=== PATIENT | female | born 1990 | race Caucasian/White ===

== ENCOUNTER 2020-11-10 14:06 | Outpatient (REF) | payer OTHER, SELFPAY ==
[2020-11-11 18:52] LABS: C. trachomatis RNA TMA NOT DETECTED (NOT DETECTED); N. gonorrhoeae RNA TMA NOT DETECTED (NOT DETECTED)
== END 2020-11-10 14:07 | disposition home or self-care (01) ==
LOC: HO.LAB 14:06
PROVIDERS: Visit Provider Advanced Practice Midwife
DX: R10.2 Pelvic and perineal pain (principal)
CPT/HCPCS: 36415; 81003; 81025; 87491; 87591; 99212

== ENCOUNTER → 2020-12-22 14:21 | Outpatient (BNVA) | payer OTHER, SELFPAY | PROVIDERS: Visit Provider Obstetrics & Gynecology | DX: Z13.89 Encounter for screening for other disorder (principal) | CPT/HCPCS: 99395 ==

== ENCOUNTER 2020-12-30 13:44 | Outpatient (REF) | payer OTHER, SELFPAY ==
--- NOTE | ~2020-12-30 | US_ITS ---
EXAMINATION: ULTRASOUND PELVIS CLINICAL INFORMATION: Pelvic and perineal pain. COMPARISON: None TECHNIQUE: Transabdominal and transvaginal imaging of pelvis is performed. FINDINGS: On transabdominal ultrasound the uterus is retroverted and retroflexed measuring 10.1 cm in length, 3.3 cm in AP and 5.4 cm in transverse dimension. The uterus is homogeneous in echotexture. There is a question of septated or a duplicated cervix, likely incomplete segmentation. There is minimal fluid within the cervical canal. Right ovary measures 2.7 x 2.4 x 2.1 cm and volume 7.1 mL. It appears unremarkable. Previously right ovary measured 3.2 x 2.1 x 2.8 cm. Left ovary measures 2.8 x 2.9 x 2.8 cm and volume 11.9 mL. There is a small anechoic cyst measuring 1.3 x 1.8 x 2.3 cm with a daughter cyst. There is no free fluid in cul-de-sac. US/US transvaginal IMPRESSION: Unremarkable uterus. Question duplicated or septated cervix with trace fluid. Simple cyst with likely a daughter cyst adjacent in left ovary.
--- NOTE | ~2020-12-30 | US_ITS ---
EXAMINATION: ULTRASOUND PELVIS CLINICAL INFORMATION: Pelvic and perineal pain. COMPARISON: None TECHNIQUE: Transabdominal and transvaginal imaging of pelvis is performed. FINDINGS: On transabdominal ultrasound the uterus is retroverted and retroflexed measuring 10.1 cm in length, 3.3 cm in AP and 5.4 cm in transverse dimension. The uterus is homogeneous in echotexture. There is a question of septated or a duplicated cervix, likely incomplete segmentation. There is minimal fluid within the cervical canal. Right ovary measures 2.7 x 2.4 x 2.1 cm and volume 7.1 mL. It appears unremarkable. Previously right ovary measured 3.2 x 2.1 x 2.8 cm. Left ovary measures 2.8 x 2.9 x 2.8 cm and volume 11.9 mL. There is a small anechoic cyst measuring 1.3 x 1.8 x 2.3 cm with a daughter cyst. There is no free fluid in cul-de-sac. US/US pelvic complete IMPRESSION: Unremarkable uterus. Question duplicated or septated cervix with trace fluid. Simple cyst with likely a daughter cyst adjacent in left ovary.
== END 2020-12-30 13:45 | disposition home or self-care (01) ==
LOC: HO.US 13:44
PROVIDERS: Visit Provider Obstetrics & Gynecology
DX: R10.2 Pelvic and perineal pain (principal)
CPT/HCPCS: 76830; 76856

== ENCOUNTER → 2021-01-04 12:07 | Outpatient (BNVA) | payer OTHER, SELFPAY | PROVIDERS: Visit Provider Obstetrics & Gynecology ==

== ENCOUNTER 2021-11-02 09:34 | Outpatient (REF) | payer OTHER, SELFPAY ==
[2021-11-02 09:52] LABS: MANUAL DIFF FLAG NO
[2021-11-02 10:14] LABS: Basophils Percent Auto 0.1 % (0-2); Eosinophils Percent Auto 0.4 % (0-4); Hematocrit 41.3 % (37.0-47.0); Hemoglobin 14.1 g/dl (12.0-16.0); Imm Gran Abs Auto 0.02 X10*3/uL (0.00-0.03); Imm Gran Pct Auto 0.2 % (0.0-0.4); Lymphocytes Absolute Auto 2.2 X10*3/uL (1.2-4.9); Lymphocytes Percent Auto 25.8 % (20-40); Mean Corpuscular HGB Conc 34.1 g/dl (31.0-35.0); Mean Corpuscular Hemoglobin 31.3 pg (27.0-33.0); Mean Corpuscular Volume 91.6 fL (80.0-98.0); Mean Platelet Volume 10.1 fL (9.4-12.3); Monocytes Absolute Auto 0.9 X10*3/uL (0.1-1.2); Monocytes Percent Auto 10.6 % (2-11); Neutrophils Absolute Auto 5.4 x10*3/uL (2.0-8.3); Neutrophils Percent Auto 62.9 % (45-73); Platelet Count 254 X10*3/uL (160-400); Red Blood Count 4.51 X10*6/uL (4.20-5.50); Red Cell Distribution Width 11.5 % (11.0-16.0); White Blood Count 8.5 X10*3/uL (4.8-10.8)
[2021-11-02 10:44] LABS: Alanine Aminotransferase 19 U/L (0-31); Albumin Level 4.2 g/dL (3.5-5.0); Alkaline Phosphatase 67 U/L (39-117); Anion Gap 12 (12-20); Aspartate Amino Transferase 17 U/L (5-31); Bilirubin Total 0.8 mg/dL (0.0-1.0); Blood Urea Nitrogen 8 mg/dL (9-16); C Reactive Protein 0.28 mg/dL (< or = 0.50); Calcium 9.5 mg/dL (8.4-10.2); Carbon Dioxide 24 mmol/L (22-29); Chloride 107 mmol/L (96-108); Cholesterol 126 mg/dL; Estimated Glomerular Filt Rate > 60; Glucose Fasting 92 mg/dL (60-99); HDL Cholesterol 42 mg/dL; LDL Cholesterol Calculated 74 mg/dl; Potassium 3.9 mmol/L (3.3-5.1); Sodium 139 mmol/L (135-145); Total Protein 7.3 g/dL (6.5-8.0); Triglycerides 50 mg/dL
[2021-11-02 10:48] LABS: Rheumatoid Factor < 15.0 IU/mL (<15.0)
[2021-11-02 10:48] LABS: Appearance Urine CLEAR; Color Urine YELLOW; Glucose Urine UA NEG (NEG); Leukocyte Esterase Urine NEG (NEG); Nitrite Urine NEG (NEG); Specific Gravity - Urine 1.015 (1.005-1.025); Urine Blood NEG (NEG); Urine Ketones NEG (NEG); Urine Protein NEG (NEG-TRACE)
[2021-11-02 11:02] LABS: TSH reflex Free T4 2.07 uIU/mL (0.32-4.0); Vitamin D 25-OH Total 21.8 ng/mL (>30)
[2021-11-02 11:04] LABS: Erythrocyte Sedimentation Rate 5 MM/HR (0-20)
[2021-11-02 11:13] LABS: Folate 15.4 ng/mL (> or = 4.0); Vitamin B12 178 pg/mL (200-900)
[2021-11-03 13:16] LABS: Anti Nuclear Antibody Screen NEGATIVE (NEGATIVE)
== END 2021-11-02 09:35 | disposition home or self-care (01) ==
LOC: HO.LAB 09:34
PROVIDERS: Visit Provider Internal Medicine
DX: Z00.00 Encounter for general adult medical examination without abnormal findings (principal); E55.9 Vitamin D deficiency, unspecified; E53.8 Deficiency of other specified B group vitamins; M79.10 Myalgia, unspecified site; R53.83 Other fatigue
CPT/HCPCS: 36415; 80053; 80061; 81003; 82306; 82607; 82746; 84443; 85025; 85652; 86038; 86039; 86140; 86431

== ENCOUNTER 2021-12-27 13:43 | Outpatient (REF) | payer OTHER, SELFPAY | END 2021-12-27 13:44 | disposition home or self-care (01) | LOC: HO.LAB 13:43 | PROVIDERS: PCP Internal Medicine; Visit Provider Obstetrics & Gynecology | DX: Z01.419 Encounter for gynecological examination (general) (routine) without abnormal findings (principal) | CPT/HCPCS: 88142 ==

== ENCOUNTER 2022-01-06 09:50 | Outpatient (REF) | payer OTHER, SELFPAY ==
[2022-01-07 13:08] LABS: BV Int Neg Control Negative (Negative); BV Int Pos Control Positive (Positive)
[2022-01-07 14:31] LABS: CT PCR NOT DETECTED (Not Detect.); NG PCR NOT DETECTED (Not Detect.)
== END 2022-01-06 09:51 | disposition home or self-care (01) ==
LOC: HO.LAB 09:50
PROVIDERS: PCP Internal Medicine; Visit Provider Advanced Practice Midwife
DX: Z01.411 Encounter for gynecological examination (general) (routine) with abnormal findings (principal); L20.9 Atopic dermatitis, unspecified; B37.3 Candidiasis of vulva and vagina; Z20.2 Contact with and (suspected) exposure to infections with a predominantly sexual mode of transmission
CPT/HCPCS: 87480; 87491; 87510; 87591; 87660; 99212

== ENCOUNTER 2022-03-27 15:43 | Emergency (ER) | payer OTHER, SELFPAY ==
[2022-03-27 16:20] VITALS: BP 121/76; PULSE 89; RESP 16; TEMP 36.1; O2SAT 100; BMI 24.5
[2022-03-27 16:49] LABS: IDNOW Serial# 16C4AD1C; Influenza A Negative (Negative); Influenza B2 Negative (Negative)
[2022-03-27 16:50] LABS: COVID-19 Test Positive (Negative)
--- NOTE | 2022-03-27 16:56 | ED.URI ---
HPI - URI/Sore Throat General Chief Complaint: Upper Respiratory Symptoms Stated Complaint: diarrhea/fatigue/weakness Time Seen by Provider: 03/27/22 16:56 Source: patient Mode of arrival: ambulatory Limitations: no limitations History of Present Illness HPI Narrative: 31 y/o female with history of mild intermittent asthma who presents to the ER with dry cough worsening since last night after a known exposure to her mother who is up visiting from [place] and was found to have COVID-19. Patient is fully vaccinated and boosted. She denies SOB or chest pain but states the cough can lead her to having a hard time catching her breath. No ARCE or difficulty breathing. No wheezing, she has not had to use her inhaler. No fever or chills. She is eating and drinking normally today but developed loose stools this day and has had diarrhea 7x, nonbloody without abdominal pain. MD elicited complaint: cough and other (diarrhea) Pertinent past history: asthma Onset (ago): day(s) (1) Consistency: progressively worsening Severity: moderate Able to tolerate fluids by mouth: Yes Exacerbating factors: nothing Relieving factors: nothing Context: sick contacts Associated symptoms: nasal congestion, cough and diarrhea Treatments prior to arrival: cold medicine Related Data Home Medications Medication Instructions Recorded Confirmed ibuprofen 400 mg tablet See Rx Instructions PO Q6-8H PRN 11/01/21 01/06/22 Previous Rx's Medication Instructions Recorded fluconazole 150 mg tablet 150 mg PO Q3D 0 Days #2 tab 01/06/22 albuterol sulfate 90 mcg/actuation 2 puff INHALATION Q4-6H PRN #8.5 g 01/24/22 aerosol inhaler (ProAir HFA) benzonatate 100 mg capsule 100 mg PO TID PRN #30 cap 03/27/22 loperamide 2 mg tablet (Imodium 2 mg PO Q6H PRN #20 tab 03/27/22 A-D) Allergies Allergy/AdvReac Type Severity Reaction Status Date / Time No Known Allergies Allergy Verified 01/06/22 10:24 Review of Systems Review of Systems: Constitutional: No Fever, No Chills, +Fatigue ENT/Mouth: No sore throat, No Rhinorrhea, No Swallowing Difficulty Cardiovascular: No Chest Pain, No SOB, No Orthopnea, No Edema Respiratory: + Cough, No Sputum, No Wheezing, No dyspnea Gastrointestinal: No Nausea, No Vomiting, + Diarrhea, No abdominal Pain, No Hematochezia, No Melena Genitourinary: No Dysuria, No Urinary Frequency, No Hematuria Musculoskeletal: No joint pain, No Myalgias Skin: No Skin Lesions, No rash Neuro: No Weakness, No Numbness, No Dizziness, +Headache Heme/Lymph: No Bruising, No Lymphadenopathy PMFSH Past Medical History Medical History Asthma Atopic dermatitis Gastritis Surgical History History of removal of cyst History of tubal ligation Family History Family History Father Asthma Mother Asthma Son Developmental delay, severe ADD (attention deficit disorder) Maternal Grandmother Diabetes Maternal Grandfather No problems noted. Other Mental health problem Social History Social History Housing: Apartment Alcohol intake: never Patient Tobacco Use Status: Current everyday Tobacco user Cigarettes Per Day: 4 Second Hand Smoke Exposure: Yes Advance Directives: No Advance Directives Information Provided: No service: No Current occupational status: employed Sexual orientation: Straight/Heterosexual Gender identity: Female Physical Exam Vital Signs: Vital Signs: Last Vital Signs Temp 96.9 F 03/27/22 16:20 Pulse 89 03/27/22 16:20 Resp 16 03/27/22 16:20 BP 121/76 03/27/22 16:20 Pulse Ox 100 03/27/22 16:20 BMI result Body Mass Index 24.5 Appearance: Alert. Oriented X3. No acute distress. Eyes: Pupils equal, round and reactive to light. ENT: Pharynx normal. Neck: Normal inspection. Neck supple. CVS: Normal heart rate and rhythm. Pulses normal. Respiratory: No respiratory distress. Breath sounds normal. Abdomen: Soft and nontender. +BS x4 Skin: Skin warm and dry. Normal skin color. Normal skin turgor. No rashes. Extremities: Normal inspection x4 Neuro: Oriented X 3. Grossly normal, nonfocal Course Course Course Narrative: 31 y/o female with history of mild intermittent asthma presents to the ER with cough and diarrhea x1 day. VS normal on arrival and exam is benign. Lungs are clear and SpO2 100%. She is found to be COVID positive. Will send Rx for tessalon and imodium. Stable for d/c home with supportive care. MDM - URI/Sore Throat Lab Data Labs: Lab Results 03/27/22 03/27/22 Range/Units 16:27 16:27 COVID-19 (RONNIE) Positive A (Negative) COVID-19 Clin Com See Note Influenza Type A (DANNA) Negative (Negative) Influenza Type B (DANNA) Negative (Negative) Influenza A & B Note See Note Critical Care Time Critical Care Time Critical Care Time: No Discharge Plan Discharge Clinical Impression: COVID-19 Patient Disposition: Home, Self-Care Instructions: Covid-19 Viral Syndrome and Novel Coronavirus (ED) Hey/Ath Additional Instructions: You were found to be COVID-19 POSITIVE today. Your exam and oxygen levels were normal. Rest. Drink plenty of fluids. Do not go out in public for the next 7 days. If you have a negative COVID test on day 5 you can return to work on day 7. If it is still positive, you must remain out for 10 days. Take over the counter cold/flu medications as needed for your symptoms. Take Tylenol and/or Motrin as needed for fevers and body aches. Follow up with your doctor this week. If you shortness of breath worsens, if you develop difficulty breathing or any other concerning symptom come back to the ER for further evaluation. Prescriptions: New benzonatate 100 mg capsule 100 mg PO TID PRN (Reason: cough) Qty: 30 0RF loperamide [Imodium A-D] 2 mg tablet 2 mg PO Q6H PRN (Reason: loose stool) Qty: 20 0RF No Action albuterol sulfate [ProAir HFA] 90 mcg/actuation HFA aerosol inhaler 2 puff inhalation Q4-6H PRN (Reason: shortness of breath or wheezing) Qty: 8.5 0RF ibuprofen 400 mg tablet See Rx Instructions PO Q6-8H PRN (Reason: pain) 0RF Rx Instructions: Take 1 to 2 tablets PO every 6 to 8 hours with food PRN; fluconazole 150 mg tablet 150 mg PO Q3D 0 Days Qty: 2 2RF Rx Instructions: may repeat second dose 72 hrs after first dose if symptoms persist Stand Alone Forms: Work/School Release Interventions: ED Discharge Assessment Last Done: 03/27/22 17:20 Discharge Date/Time: 03/27/22 17:22
== END 2022-03-27 17:22 | disposition home or self-care (01) ==
PROVIDERS: Emergency Provider Emergency Medicine Emergency Medical Services; PCP Internal Medicine
DX: U07.1 COVID-19 (principal); R09.81 Nasal congestion; R05.9 Cough, unspecified; F17.210 Nicotine dependence, cigarettes, uncomplicated; Z71.6 Tobacco abuse counseling
CPT/HCPCS: 87502; 87635; 99282; 99283

== ENCOUNTER 2022-05-29 09:23 | Outpatient (REF) | payer OTHER, SELFPAY ==
[2022-05-29 11:02] LABS: Magnesium 1.7 mg/dL (1.6-2.6)
[2022-05-29 11:33] LABS: Folate 10.9 ng/mL (> or = 4.0); Vitamin B12 190 pg/mL (200-900)
== END 2022-05-29 09:24 | disposition home or self-care (01) ==
LOC: HO.LAB 09:23
PROVIDERS: PCP Internal Medicine; Visit Provider Nurse Practitioner Family
DX: I78.1 Nevus, non-neoplastic (principal); R79.89 Other specified abnormal findings of blood chemistry; E53.8 Deficiency of other specified B group vitamins
CPT/HCPCS: 36415; 82306; 82607; 82746; 83735

== ENCOUNTER 2022-06-22 12:43 | Outpatient (REF) | payer OTHER, SELFPAY ==
[2022-06-29 08:32] LABS: HPV mRNA E6/E7 rflx Not Detected (Not Detected)
== END 2022-06-22 12:44 | disposition home or self-care (01) ==
LOC: HO.LAB 12:43
PROVIDERS: Visit Provider Obstetrics & Gynecology
DX: Z12.4 Encounter for screening for malignant neoplasm of cervix (principal); Z11.51 Encounter for screening for human papillomavirus (HPV); R87.615 Unsatisfactory cytologic smear of cervix
CPT/HCPCS: 87624; 88142; 99212

== ENCOUNTER → 2022-08-31 09:33 | Outpatient (BNVA) | payer OTHER, SELFPAY | PROVIDERS: PCP Internal Medicine; Visit Provider Surgery Vascular Surgery | DX: I83.11 Varicose veins of right lower extremity with inflammation (principal) | CPT/HCPCS: 99202 ==

== ENCOUNTER 2022-10-17 13:05 | Outpatient (REF) | payer OTHER, SELFPAY ==
--- NOTE | ~2022-10-17 | US_ITS ---
EXAMINATION: US LOWER EXTREMITY VENOUS (REFLUX EXAM), BILATERAL CLINICAL INDICATION: Chronic venous insufficiency with lower extremity varicose veins COMPARISON: None. TECHNIQUE: Color flow triplex imaging and compression Doppler was performed to evaluate both the deep and the superficial systems bilaterally. To evaluate the superficial system, the examination was performed in the upright position. Color-flow Doppler ultrasound and compression ultrasound were utilized. In addition, maneuvers were utilized to demonstrate reflux. FINDINGS: 1. DEEP VENOUS ULTRASOUND OF THE RIGHT LOWER EXTREMITY: Common Femoral Vein: Compressible, normal respiratory variation and augmented flow. Femoral Vein: Compressible, normal color flow and augmentation. Popliteal Vein: Compressible, normal augmentation. Deep Reflux: There is no evidence of reflux in the deep system in either the common femoral vein or the popliteal vein. There is no evidence of a Mccormick's cyst. 2. SUPERFICIAL ULTRASOUND WITH DOPPLER OF RIGHT LOWER EXTREMITY: GREAT SAPHENOUS VEIN: Saphenofemoral Junction: 0.6 cm; Reflux: 0 ms Proximal Thigh: 0.4 cm; Reflux: 0 ms Mid Thigh: 0.3 cm; Reflux: 0 ms Above Knee: 0.2 cm; Reflux: 0 ms At Knee: 0.2 cm; Reflux: 0 ms Below Knee: 0.2 cm; Reflux: 0 ms Mid Calf: 0.3 cm; Reflux: 0 ms Ankle: 0.3 cm; Reflux: 0 ms DUPLICATED MEDIAL GREAT SAPHENOUS VEIN: Diameter: None Imaged Reflux: NA DUPLICATED LATERAL GREAT SAPHENOUS VEIN: Diameter: None Imaged Reflux: NA SMALL SAPHENOUS VEIN: Proximal: 0.4 cm; Reflux: 0 ms Distal: 0.2 cm; Reflux: 0 ms VEIN OF GIACOMINI: None Imaged. PERFORATORS: Location: None significant Size: NA Reflux: NA VARICOSITIES: Location: Proximal thigh Size: 0.4 cm Reflux: None 3. DEEP VENOUS ULTRASOUND OF THE LEFT LOWER EXTREMITY: Common Femoral Vein: Compressible, normal respiratory variation and augmented flow. Femoral Vein: Compressible, normal color flow and augmentation. Popliteal Vein: Compressible, normal augmentation. Deep Reflux: There is no evidence of reflux in the deep system in either the common femoral vein or the popliteal vein. There is no evidence of a Mccormick's cyst. 4. SUPERFICIAL ULTRASOUND WITH DOPPLER OF LEFT LOWER EXTREMITY: GREAT SAPHENOUS VEIN: Saphenofemoral Junction: 0.7 cm; Reflux: 0 ms Proximal Thigh: 0.3 cm; Reflux: 0 ms Mid Thigh: 0.3 cm; Reflux: 0 ms Above Knee: 0.2 cm; Reflux: 0 ms At Knee: 0.2 cm; Reflux: 0 ms Below Knee: 0.2 cm; Reflux: 0 ms Mid Calf: 0.3 cm; Reflux: 0 ms Ankle: 0.2 cm; Reflux: 0 ms DUPLICATED MEDIAL GREAT SAPHENOUS VEIN: Diameter: None Imaged Reflux: NA DUPLICATED LATERAL GREAT SAPHENOUS VEIN: Diameter: 0.2 cm Reflux: None SMALL SAPHENOUS VEIN: Proximal: 0.3 cm; Reflux: 0 ms Distal: 0.2 cm; Reflux: 0 ms VEIN OF GIACOMINI: None Imaged. PERFORATORS: Location: None significant Size: NA Reflux: NA VARICOSITIES: Location: None Imaged Size: NA Reflux: NA US/US venous duplex LE BI IMPRESSION: Right: No significant venous insufficiency or reflux in the great saphenous vein or small saphenous vein. Varicose vein in the proximal thigh as described above Left: No significant venous insufficiency or reflux in the great saphenous vein or small saphenous vein
== END 2022-10-17 13:06 | disposition home or self-care (01) ==
LOC: HO.US 13:05
PROVIDERS: Visit Provider Surgery Vascular Surgery
DX: I83.11 Varicose veins of right lower extremity with inflammation (principal)
CPT/HCPCS: 93970

== ENCOUNTER → 2022-10-26 09:45 | Outpatient (BNVA) | payer OTHER, SELFPAY | PROVIDERS: PCP Internal Medicine; Visit Provider Surgery Vascular Surgery | DX: M79.604 Pain in right leg (principal); M79.605 Pain in left leg | CPT/HCPCS: 99212 ==

== ENCOUNTER → 2023-03-08 09:13 | Outpatient (BNVA) | payer OTHER, SELFPAY | PROVIDERS: PCP Internal Medicine; Visit Provider Obstetrics & Gynecology ==

== ENCOUNTER 2023-05-28 08:30 | Emergency (ER) | payer OTHER, SELFPAY ==
[2023-05-28 08:34] VITALS: BP 104/79; PULSE 74; RESP 17; TEMP 35.9; O2SAT 99; BMI 28.5
[2023-05-28 08:50] LABS: Basophils Percent Auto 0.2 % (0-2); Eosinophils Absolute Auto 0.1 X10*3/uL (0.0-0.4); Eosinophils Percent Auto 0.6 % (0-4); Hematocrit 40.3 % (37.0-47.0); Hemoglobin 13.7 g/dl (12.0-16.0); Imm Gran Abs Auto 0.05 X10*3/uL (0.00-0.03); Imm Gran Pct Auto 0.5 % (0.0-0.4); Lymphocytes Absolute Auto 1.4 X10*3/uL (1.2-4.9); Lymphocytes Percent Auto 13.6 % (20-40); MANUAL DIFF FLAG NO; Mean Corpuscular Hemoglobin 30.6 pg (27.0-33.0); Mean Platelet Volume 9.5 fL (9.4-12.3); Monocytes Absolute Auto 0.7 X10*3/uL (0.1-1.2); Monocytes Percent Auto 7.1 % (2-11); Neutrophils Absolute Auto 8.1 x10*3/uL (2.0-8.3); Platelet Count 261 X10*3/uL (160-400); Red Blood Count 4.48 X10*6/uL (4.20-5.50); Red Cell Distribution Width 11.2 % (11.0-16.0); White Blood Count 10.4 X10*3/uL (4.8-10.8)
[2023-05-28 09:04] LABS: Alanine Aminotransferase 13 U/L (0-31); Albumin Level 3.6 g/dL (3.5-5.0); Alkaline Phosphatase 68 U/L (39-117); Anion Gap 14 (12-20); Aspartate Amino Transferase 15 U/L (5-31); Bilirubin Direct 0.2 mg/dL (0.0-0.5); Bilirubin Total 0.5 mg/dL (0.0-1.0); Blood Urea Nitrogen 9 mg/dL (9-16); Calcium 8.9 mg/dL (8.4-10.2); Carbon Dioxide 18 mmol/L (22-29); Chloride 109 mmol/L (96-108); Creatinine Clr Calc Pharmacy 143.2; Estimated Glomerular Filt Rate > 60; Glucose Random 100 mg/dL (60-115); Lipase 9 U/L (8-78); Potassium 3.5 mmol/L (3.3-5.1); Sodium 137 mmol/L (135-145); Total Protein 6.7 g/dL (6.5-8.0)
--- NOTE | 2023-05-28 09:11 | ED_ITS ---
HPI - Abdominal Pain General Chief Complaint: General Medical Stated Complaint: vomiting headache Time Seen by Provider: 05/28/23 08:54 Source: patient and old records reviewed Mode of arrival: ambulatory Limitations: no limitations History of Present Illness HPI narrative: 32 y/o female with history of asthma and history tubal ligation in the past who presents to the ER from home c/o intermittent epigastric abdominal pain along with N/V that started late last night. She state she vomited 6 times overnight and had 1 episode of nonbloody loose stool this morning. Her and boss recently had similar illness. She states the pain is mostly in the upper abdomen, in the epigastric and LUQ areas. No associated fever, chills, urinary symptoms. No chest pain, SOB. She is currently on her menstrual cycle. MD elicited complaint: abdominal pain Pertinent past history: gastritis (hx EGD in the past) Onset (ago): day(s) (1) Pain Consistency: intermittent Location: epigastric Severity: moderate Radiation: LUQ Exacerbating factors: nothing Relieving factors: nothing Context: history of similar episodes (years ago when she had gastritis ) Associated symptoms: nausea, vomiting and diarrhea (x1) Related Data Hx Last Menstrual Period: current Patient : No Home Medications Medication Instructions Recorded Confirmed ibuprofen 400 mg tablet See Rx Instructions PO Q6-8H PRN 11/01/21 05/17/22 pain Previous Rx's Medication Instructions Recorded albuterol sulfate 90 mcg/actuation 2 puff inhalation Q4-6H PRN 01/24/22 aerosol inhaler (ProAir HFA) shortness of breath or wheezing #8.5 grams fluticasone propionate 50 2 spray intranasal DAILY PRN 11/06/22 mcg/actuation nasal allergy symptoms 30 days #16 grams spray,suspension ondansetron 4 mg disintegrating 4 mg PO Q8H PRN nausea and 05/28/23 tablet vomiting #7 tabs pantoprazole 40 mg tablet,delayed 40 mg PO DAILY #14 tabs 05/28/23 release (Protonix) Allergies Allergy/AdvReac Type Severity Reaction Status Date / Time No Known Allergies Allergy Verified 03/08/23 09:22 Review of Systems Review of Systems Yes all other systems are reviewed and are negative PMFSH Past Medical History Medical History Asthma Atopic dermatitis COVID-19 Gastritis Surgical History History of removal of cyst History of tubal ligation Hx Last Menstrual Period: current Family History Family History Father Asthma Mother Asthma Son Developmental delay, severe ADD (attention deficit disorder) Maternal Grandmother Diabetes Maternal Grandfather No problems noted. Other Mental health problem Social History Social History Household Members: Spouse and Children Housing: Apartment Alcohol intake: never Patient Tobacco Use Status: Current everyday Tobacco user Tobacco use type: Cigarette Cigarettes Per Day: 4 Smoked in Last 30 Days: Yes Second Hand Smoke Exposure: Yes Use of substances other than those prescribed or required for medical reasons: No Advance Directives: No Advance Directives Information Provided: No Patient : No service: No Current occupational status: employed Current occupation: [employer] Sexual orientation: Straight/Heterosexual Gender identity: Female Cognitive needs: No Hearing needs: No Vision needs: Yes Physical Exam ED Vital Signs: Vital Signs - 24 hr 05/28/23 08:34 Temperature 96.6 F L Pulse Rate 74 Respiratory Rate 17 Blood Pressure 104/79 Pulse Oximetry 99 Oxygen Delivery Method Room Air BMI result Body Mass Index 28.5 Appearance: Alert. Oriented X3. No acute distress. Head: normocephalic, atraumatic. Eyes: Pupils equal, round and reactive to light. ENT: Pharynx normal. No tonsillar swelling or exudate. Neck: Normal inspection. Neck supple. CVS: Normal heart rate and rhythm. Pulses normal. Respiratory: No respiratory distress. Breath sounds normal. Abdomen: Soft and minimally tender in the epigastric area without rebound or guarding, normal active +BS x4 Skin: Skin warm and dry. Normal skin color. Normal skin turgor. No rashes. Extremities: No lower extremity edema. No joint swelling. Neuro/psych: Oriented X 3. No motor deficit. No sensory deficit. CN II-XII intact. Normal speech and cognition. Medical Decision Making Medical Decision Making MDM Narrative: 32 y/o female with history of asthma and history tubal ligation in the past who presents to the ER from home c/o intermittent epigastric abdominal pain along with N/V that started late last night. On arrival to the ER her VS are stable. Her exam is reassuring, no significant abd tenderness. Lab workup performed showing no leukocytosis. LFTs and lipase are normal. Given her known sick contacts, her clinical presentation is most likely c/w viral gastroenteritis. given GI cocktail with improvement in her symptoms. she is tolerating PO and feeling much better. stable for d/c home with prn zofran and PPI. she w/ f/u GI if symptoms persist. Differential Diagnosis Differential Diagnoses: The differential diagnosis associated with the presentation includes viral gastroenteritis, cholecystitis, SBO, pancreatitis, PUD, gastritis Lab Data MDM Lab Attestation statement: I reviewed the patient's lab results. no leukocytosis, LFTs normal 05/28/23 08:45 05/28/23 08:45 Labs: Lab Results 05/28/23 05/28/23 Range/Units 08:45 08:45 WBC 10.4 (4.8-10.8) X10*3/uL RBC 4.48 (4.20-5.50) X10*6/uL Hgb 13.7 (12.0-16.0) g/dl Hct 40.3 (37.0-47.0) % MCV 90.0 (80.0-98.0) fL MCH 30.6 (27.0-33.0) pg MCHC 34.0 (31.0-35.0) g/dl RDW 11.2 (11.0-16.0) % Plt Count 261 (160-400) X10*3/uL MPV 9.5 (9.4-12.3) fL Immature Gran % (Auto) 0.5 H (0.0-0.4) % Neut % (Auto) 78.0 H (45-73) % Lymph % (Auto) 13.6 L (20-40) % Lares % (Auto) 7.1 (2-11) % Eos % (Auto) 0.6 (0-4) % Baso % (Auto) 0.2 (0-2) % Lymph # (Auto) 1.4 (1.2-4.9) X10*3/uL Lares # (Auto) 0.7 (0.1-1.2) X10*3/uL Eos # (Auto) 0.1 (0.0-0.4) X10*3/uL Baso # (Auto) 0.0 (0.0-0.2) X10*3/uL Abs Immat Gran (auto) 0.05 H (0.00-0.03) X10*3/uL Absolute Neuts (auto) 8.1 (2.0-8.3) x10*3/uL Absolute Nucleated RBC 0.000 (0.0-0.012) X10*3/uL Nucleated RBC % (auto) 0.0 (0.0-0.2) /100WBC Sodium 137 (135-145) mmol/L Potassium 3.5 (3.3-5.1) mmol/L Chloride 109 H (96-108) mmol/L Carbon Dioxide 18 L (22-29) mmol/L Anion Gap 14 (12-20) BUN 9 (9-16) mg/dL Creatinine 0.57 (0.5-1.4) mg/dL Estim Creat Clear Calc 143.2 Estimated GFR > 60 Random Glucose 100 (60-115) mg/dL Calcium 8.9 D (8.4-10.2) mg/dL Total Bilirubin 0.5 (0.0-1.0) mg/dL Direct Bilirubin 0.2 (0.0-0.5) mg/dL AST 15 (5-31) U/L ALT 13 (0-31) U/L Alkaline Phosphatase 68 (39-117) U/L Total Protein 6.7 (6.5-8.0) g/dL Albumin 3.6 (3.5-5.0) g/dL Lipase 9 (8-78) U/L External Record Review External record reviewed: Outpatient record, Prior outpatient labs and Prior outpatient radiology Tests considered The following testing was considered but not selected: considered imaging of the abdomen including a possible CT scan or U/S however her exam was benign Prescription Management I considered prescription management with: Pain Medication Medications Administered Discontinued Medications Generic Name Dose Route Start Last Admin Trade Name Freq PRN Reason Stop Dose Admin Al Hydroxide/Mg Hydroxide 30 ml 05/28/23 09:08 05/28/23 09:21 Magnesium Hydrox/Alum Hydrox 30 Ml Oral.Susp PO 05/28/23 09:09 30 ml ONCE ONE Administration Belladonna Alkaloids/Phenobarbital 10 ml 05/28/23 09:08 05/28/23 09:20 Phenobarb/Hyoscy/Atropine/Scop 10 Ml Elixir PO 05/28/23 09:09 10 ml ONCE ONE Administration Famotidine 20 mg 05/28/23 09:08 05/28/23 09:20 Famotidine 20 Mg Tablet PO 05/28/23 09:09 20 mg ONCE ONE Administration Ondansetron HCl 4 mg 05/28/23 09:08 05/28/23 09:21 Ondansetron Odt 4 Mg Tab.Nicolledis TRANSLINGU 05/28/23 09:09 4 mg ONCE ONE Administration Critical Care Time Critical Care Time Critical Care Time: No Discharge Plan Discharge Clinical Impression: Gastroenteritis Patient Disposition: Home, Self-Care Instructions: Gastroenteritis (DC) Additional Instructions: You lab workup today was unremarkable. Your urine test was negative for infection and . You most likely have a viral GI bug also known as gastroenteritis. Treatment is supportive care, symptoms usually resolve on their own in 48-72 hours. Recommend rest and plenty of oral hydration. Stick to a bland diet like soup and toast while you are not feeling well. Take the prescribed medication as needed for nausea. Recommend over the counter Pepto Bismol or Imodium for upset stomach and diarrhea. Follow up with your doctor as needed. If you develop new or worsening symptoms call 911 or come back to the ER for further evaluation. Prescriptions: New ondansetron 4 mg tablet,disintegrating 4 mg PO Q8H PRN (Reason: nausea and vomiting) Qty: 7 0RF pantoprazole [Protonix] 40 mg tablet,delayed release (DR/EC) 40 mg PO DAILY Qty: 14 0RF No Action albuterol sulfate [ProAir HFA] 90 mcg/actuation HFA aerosol inhaler 2 puff inhalation Q4-6H PRN (Reason: shortness of breath or wheezing) Qty: 8.5 0RF fluticasone propionate 50 mcg/actuation spray,suspension 2 spray intranasal DAILY PRN (Reason: allergy symptoms) 30 Days Qty: 16 5RF Rx Instructions: administer into each nostril ibuprofen 400 mg tablet See Rx Instructions PO Q6-8H PRN (Reason: pain) Rx Instructions: Take 1 to 2 tablets PO every 6 to 8 hours with food PRN; Referrals: Spenser Mathew MD [Primary Care Provider] -
[2023-05-28] MEDS: PHENobarb/Hyoscy/Atropine/Scop 10 ML ELIXIR PO (09:20)
[2023-05-28] MEDS: Famotidine 20 MG TABLET PO (09:20)
[2023-05-28] MEDS: Ondansetron ODT 4 MG TAB.RAPDIS TRANSLINGU (09:21)
[2023-05-28] MEDS: Magnesium Hydrox/Alum Hydrox 30 ML ORAL.SUSP PO (09:21)
[2023-05-28 10:59] LABS: Appearance Urine Clear; Color Urine Yellow; Glucose Urine UA Negative (Negative); Leukocyte Esterase Urine Negative (Negative); Nitrite Urine Negative (Negative); PH >= 9.0 (5.0-9.0); UMIC TRIGGER UACC YES; Urine Blood Small (1+) (Negative); Urine Ketones Negative (Negative); Urine Protein Negative (Neg-Trace)
[2023-05-28 11:00] LABS: UPreg QC Valid YES; Urine Pregnancy NEGATIVE (NEGATIVE)
[2023-05-28 11:01] LABS: Bacteria Urine None Seen (None Seen); Hyaline Casts Urine 0-2 /LPF (0-2); RBC Urine >20 /HPF (0-2); Squamous Epithelial Cell Urine 0-2 /HPF (0-2); WBC Urine 0-5 /HPF (0-5)
== END 2023-05-28 11:04 | disposition home or self-care (01) ==
PROVIDERS: Emergency Provider Emergency Medicine; PCP Internal Medicine
DX: K52.9 Noninfective gastroenteritis and colitis, unspecified (principal); R11.2 Nausea with vomiting, unspecified; R10.13 Epigastric pain; F17.210 Nicotine dependence, cigarettes, uncomplicated; Z79.899 Other long term (current) drug therapy
CPT/HCPCS: 36415; 80053; 81001; 81025; 82248; 83690; 85025; 99283; 99284

== ENCOUNTER 2023-09-05 12:43 | Outpatient (AMB) | payer OTHER, SELFPAY ==
[2023-09-05 12:47] VITALS: BP 110/70; PULSE 80; O2SAT 98; BMI 26.6
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
== END 2023-09-05 13:39 | disposition home or self-care (01) ==
PROVIDERS: PCP Internal Medicine; Visit Provider Internal Medicine
DX: Z00.00 Encounter for general adult medical examination without abnormal findings (principal); J45.20 Mild intermittent asthma, uncomplicated; F33.9 Major depressive disorder, recurrent, unspecified; L73.2 Hidradenitis suppurativa; E55.9 Vitamin D deficiency, unspecified; E53.8 Deficiency of other specified B group vitamins; E66.3 Overweight
CPT/HCPCS: 96127; 99395

== ENCOUNTER 2023-09-09 09:19 | Emergency (ER) | payer OTHER, SELFPAY ==
[2023-09-09 09:41] VITALS: BP 107/55; PULSE 75; RESP 17; TEMP 36.4; O2SAT 99; BMI 28.7
[2023-09-09 10:23] LABS: IDNOW Serial# 08D9AD1C; Strep A Nucleic Acid Negative (Negative)
[2023-09-09 10:25] LABS: IDNOW Serial# 9DB6401D; Influenza A Negative (Negative)
[2023-09-09 10:26] LABS: Influenza B2 Negative (Negative)
[2023-09-09 10:27] LABS: COVID-19 Test Negative (Negative); IDNOW Serial# 58CA691E
--- NOTE | 2023-09-09 10:55 | ED_ITS ---
HPI - URI/Sore Throat General Chief Complaint: Upper Respiratory Symptoms Stated Complaint: Right ear pain, sore throat Time Seen by Provider: 09/09/23 10:46 Source: patient Mode of arrival: ambulatory Limitations: no limitations History of Present Illness HPI Narrative: Patient is a 33-year-old female who presents emergency department for evaluation of nonproductive cough, scratchy throat, and right ear pain with onset of symptoms yesterday. She states that she woke this morning and noticed a small amount of yellow discharge from her right ear. denies muffled hearing. Denies fevers, chills, headache, neck pain, neck stiffness, chest pain, shortness of breath, nausea, vomiting, abdominal pain. Related Data Home Medications Medication Instructions Recorded Confirmed ibuprofen 400 mg tablet See Rx Instructions PO Q6-8H PRN 11/01/21 09/05/23 pain Previous Rx's Medication Instructions Recorded albuterol sulfate 90 mcg/actuation 2 puff inhalation Q4-6H PRN 01/24/22 aerosol inhaler (ProAir HFA) shortness of breath or wheezing #8.5 grams fluticasone propionate 50 2 spray intranasal DAILY PRN 11/06/22 mcg/actuation nasal allergy symptoms 30 days #16 grams spray,suspension ondansetron 4 mg disintegrating 4 mg PO Q8H PRN nausea and 05/28/23 tablet vomiting #7 tabs pantoprazole 40 mg tablet,delayed 40 mg PO DAILY #14 tabs 05/28/23 release (Protonix) sertraline 50 mg tablet 50 mg PO DAILY 30 days #30 tabs 09/05/23 amoxicillin 875 mg-potassium 1 tab PO BID #14 tabs 09/09/23 clavulanate 125 mg tablet Allergies Allergy/AdvReac Type Severity Reaction Status Date / Time No Known Allergies Allergy Verified 09/05/23 13:00 Review of Systems Review of Systems: Yes all other systems are reviewed and are negative PMFSH Past Medical History Attestation statement: The following information was validated with the patient. Source: old records reviewed Medical History Overweight (BMI 25.0-29.9) Vitamin B12 deficiency Vitamin D deficiency Depression COVID-19 Atopic dermatitis Gastritis Asthma Surgical History History of removal of cyst History of tubal ligation Family History Family History Father Asthma Mother Asthma Son Developmental delay, severe ADD (attention deficit disorder) Maternal Grandmother Diabetes Maternal Grandfather No problems noted. Other Mental health problem Social History Social History Household Members: Spouse and Children Housing: Apartment Alcohol intake: never Patient Tobacco Use Status: Current everyday Tobacco user Tobacco use type: Cigarette Cigarettes Per Day: 4 Second Hand Smoke Exposure: Yes Advance Directives: No Advance Directives Information Provided: No service: No Current occupational status: employed Current occupation: [employer] Sexual orientation: Straight/Heterosexual Gender identity: Female Cognitive needs: No Hearing needs: No Vision needs: Yes Physical Exam Vital Signs: Vital Signs: Last Vital Signs Temp 97.5 F 09/09/23 09:41 Pulse 75 09/09/23 09:41 Resp 17 09/09/23 09:41 BP 107/55 L 09/09/23 09:41 Pulse Ox 99 09/09/23 09:41 O2 Del Method Room Air 09/09/23 09:41 BMI result Body Mass Index 28.7 Appearance: Alert.?Oriented to person, place and time. No acute distres s.?Normal affect. Eyes: Pupils equal, round and reactive to light.? ENT: Pharynx normal.?? the TM normal on the left. TM on the right is intact, erythematous, bulging, supperative Neck: Normal inspection.? Neck supple.?? No cervical lymphadenopathy CVS: Heart sounds normal. Normal heart rate and rhythm.? Pulses normal.?? Respiratory: No respiratory distress.? Lung sounds clear to auscultation bilaterally?? Abdomen: Soft and non-tender. Normoactive bowel sounds. ?? Skin: Skin warm and dry.? Normal skin color.? Extremities: No lower extremity edema.? Neuro: Moves all extremities spontaneously. Sensation intact bilaterally. CN II- XII intact. No focal neuro deficits. Ambulates with normal steady gait. Medical Decision Making Medical Decision Making MDM Narrative: Patient is a 33-year-old female with no reported past medical history, presenting for evaluation of upper respiratory symptoms. COVID-19 testing negative. Influenza testing negative. RSV testing negative. Strep a testing negative. Examination not consistent peritonsillar or retropharyngeal abscess. Notable acute otitis media on the right without obvious rupture of TM, she did endorse yellow drainage from the ear, she does have cerumen in the canal, discussed symptoms of TM rupture, advised against inserting anything into the ear canal. sent course of antibiotic to pharmacy At this time history and physical exam not consistent with ACS/PE/pneumonia. Overall she is Well- appearing, nontoxic, afebrile, no tachycardia or tachypnea/hypoxia. Speaking clear full sentences, ambulatory with steady gait. Discussed additional conservative treatment including rest, hydration, Tylenol/ibuprofen as needed for fever and body aches, saline nasal spray, humidifier, [id number] cold medication. Advised to follow-up with primary care provider as needed, discussed reasons to return back to the emergency department. All questions were answered. Patient discharged home in stable condition. Differential Diagnosis Differential Diagnoses: The differential diagnosis associated with the presentation includes ( as noted above) Lab Data MDM Lab Attestation statement: I reviewed the patient's lab results. ( as noted above) Labs: Lab Results 09/09/23 Range/Units 09:51 COVID-19 (RONNIE) Negative (Negative) COVID-19 Clin Com See Note Influenza Type A (DANNA) Negative (Negative) Influenza Type B (DANNA) Negative (Negative) Influenza A & B Note See Note S. pyogenes GrpA DANNA Negative (Negative) Independent Historian Clinical information obtained from an independent historian. History obtained from or confirmed by: Spouse ( present and confirms history) Prescription Management I considered prescription management with: Antibiotic Discharge Plan Discharge Clinical Impression: Acute otitis media Qualifiers: Otitis media type: suppurative Laterality: right Recurrence: non-recurrent Spontaneous tympanic membrane rupture: without spontaneous rupture Qualified Code(s): H66.001 - Acute suppurative otitis media without spontaneous rupture of ear drum, right ear Patient Disposition: Home, Self-Care Instructions: Ear Infection (ED) Additional Instructions: do not insert anything into the ear canal such as Q-tips, this will increase the chances of rupturing the ear drum. Complete the entire course of antibiotics as prescribed. Contact your primary care provider to arrange for a follow-up visit. Return back to emergency department any new or worsening symptoms or concerns. Prescriptions: New amoxicillin-pot clavulanate 875-125 mg tablet 1 tab PO BID Qty: 14 0RF No Action albuterol sulfate [ProAir HFA] 90 mcg/actuation HFA aerosol inhaler 2 puff inhalation Q4-6H PRN (Reason: shortness of breath or wheezing) Qty: 8.5 0RF fluticasone propionate 50 mcg/actuation spray,suspension 2 spray intranasal DAILY PRN (Reason: allergy symptoms) 30 Days Qty: 16 5RF Rx Instructions: administer into each nostril ondansetron 4 mg tablet,disintegrating 4 mg PO Q8H PRN (Reason: nausea and vomiting) Qty: 7 0RF pantoprazole [Protonix] 40 mg tablet,delayed release (DR/EC) 40 mg PO DAILY Qty: 14 0RF sertraline 50 mg tablet 50 mg PO DAILY 30 Days Qty: 30 2RF ibuprofen 400 mg tablet See Rx Instructions PO Q6-8H PRN (Reason: pain) Rx Instructions: Take 1 to 2 tablets PO every 6 to 8 hours with food PRN; Referrals: Spenser Mathew MD [Primary Care Provider] -
== END 2023-09-09 11:06 | disposition home or self-care (01) ==
PROVIDERS: Emergency Provider Emergency Medicine Emergency Medical Services; PCP Internal Medicine
DX: H66.001 Acute suppurative otitis media without spontaneous rupture of ear drum, right ear (principal); Z11.52 Encounter for screening for COVID-19; J02.9 Acute pharyngitis, unspecified
CPT/HCPCS: 87502; 87635; 87651; 99283

== ENCOUNTER 2024-02-11 09:42 | Emergency (ER) | payer OTHER, SELFPAY ==
[2024-02-11 10:19] VITALS: BP 102/69; PULSE 84; RESP 18; TEMP 37.2; O2SAT 99; BMI 28.6
[2024-02-11 10:55] LABS: COVID-19 Test Negative (Negative); IDNOW Serial# 08D9AD1C
[2024-02-11 10:57] LABS: IDNOW Serial# 152EDE1D; Influenza A Positive (Negative); Influenza B2 Negative (Negative)
--- NOTE | 2024-02-11 11:53 | ED_ITS ---
HPI - URI/Sore Throat General Chief Complaint: Upper Respiratory Symptoms Stated Complaint: Fever since sunday Time Seen by Provider: 02/11/24 11:00 Source: patient and RN notes reviewed Mode of arrival: ambulatory Limitations: no limitations History of Present Illness HPI Narrative: This is a 33-year-old female, with a history of asthma, who presents emergency department with complaints of fevers, body aches, congestion, and cough x 4 days. Patient reports that her onset of symptoms consistent of sneezing, congestion and thought her symptoms were attributed to allergies. She states that this has since progressed with fevers of 100.4, and body aches. She has been taking Tylenol for her symptoms which has provided her with some relief. She states that her children were sick with similar symptoms last week. She denies any chest pain, shortness for breath, or wheezing. No abdominal pain, nausea, vomiting or diarrhea. No urinary symptoms. No other complaints or concerns at this time. MD elicited complaint: fever, cough, sore throat and nasal congestion Consistency: constant Severity: moderate Exacerbating factors: nothing Relieving factors: nothing Context: sick contacts Associated symptoms: fever and myalgias Related Data Home Medications ?Medication ?Instructions ?Recorded ?Confirmed ibuprofen 400 mg tablet See Rx Instructions PO Q6-8H PRN 11/01/21 09/05/23 pain Previous Rx's ?Medication ?Instructions ?Recorded albuterol sulfate 90 mcg/actuation 2 puff inhalation Q4-6H PRN 01/24/22 aerosol inhaler (ProAir HFA) shortness of breath or wheezing #8.5 grams fluticasone propionate 50 2 spray intranasal DAILY PRN 11/06/22 mcg/actuation nasal allergy symptoms 30 days #16 grams spray,suspension ondansetron 4 mg disintegrating 4 mg PO Q8H PRN nausea and 05/28/23 tablet vomiting #7 tabs pantoprazole 40 mg tablet,delayed 40 mg PO DAILY #14 tabs 05/28/23 release (Protonix) sertraline 50 mg tablet 50 mg PO DAILY 30 days #30 tabs 09/05/23 amoxicillin 875 mg-potassium 1 tab PO BID #14 tabs 09/09/23 clavulanate 125 mg tablet benzonatate 100 mg capsule 100 mg PO TID PRN cough #14 caps 02/11/24 ibuprofen 600 mg tablet 600 mg PO Q6H PRN fever or pain 02/11/24 #30 tabs Allergies Allergy/AdvReac Type Severity Reaction Status Date / Time No Known Allergies Allergy Verified 02/11/24 10:20 Review of Systems Review of Systems: Yes all other systems are reviewed and are negative Constitutional: Constitutional: Reports as per [facility] Past Medical History Medical History Overweight (BMI 25.0-29.9) Vitamin B12 deficiency Vitamin D deficiency Depression COVID-19 Atopic dermatitis Gastritis Asthma Surgical History History of removal of cyst History of tubal ligation Family History Family History Father Asthma Mother Asthma Son Developmental delay, severe ADD (attention deficit disorder) Maternal Grandmother Diabetes Maternal Grandfather No problems noted. Other Mental health problem Social History Social History Household Members: Spouse and Children Housing: Apartment Alcohol intake: never Patient Tobacco Use Status: Current everyday Tobacco user Tobacco use type: Cigarette Cigarettes Per Day: 4 Second Hand Smoke Exposure: Yes Advance Directives: No Advance Directives Information Provided: Yes service: No Current occupational status: employed Current occupation: [employer] Sexual orientation: Straight/Heterosexual Gender identity: Female Cognitive needs: No Hearing needs: No Vision needs: Yes Physical Exam Vital Signs: Vital Signs: Last Vital Signs Temp 98.9 F 02/11/24 10:19 Pulse 84 02/11/24 10:19 Resp 18 02/11/24 10:19 BP 102/69 02/11/24 10:19 Pulse Ox 99 02/11/24 10:19 O2 Del Method Room Air 02/11/24 10:19 BMI result Body Mass Index 28.6 Const: General: cooperative, comfortable and no acute distress Orientation/consciousness: patient oriented x3 Limitations: no limitations HEENT: Head: Yes normal to inspection, Yes normocephalic and Yes atraumatic Ears: hearing grossly normal bilaterally and TM's normal bilaterally General nose exam: Normal external nose present Face and sinus: Yes normal facial exam Mouth: Normal oral and palatal mucosa present, oropharynx normal and moist mucous membranes Throat: Yes posterior oropharynx normal Eyes: General: appearance normal, both eyes and all related structures Eyelids: Yes eyelids normal Conjunctivae: conjunctivae normal Sclerae: sclerae normal Pupils: Equal, round and reactive pupils present EOM: EOMs intact bilaterally Neck: Neck: Yes normal visual inspection, Yes full ROM and Yes no lymphadenopathy Lymphatic: no lymphadenopathy noted Chest: Chest palpation & inspection: normal inspection of the chest Resp: Effort & Inspection: normal respiratory effort and able to speak in complete sentences Auscultation: clear to auscultation bilaterally, no crackles, no rales, no rhonchi and no wheezes Cardio: Rate: regular rate Rhythm: regular rhythm Heart sounds: S1 normal heart sound present and S2 normal heart sound present GI: Inspection: Yes normal to inspection Skin: General skin exam: no rashes or lesions noted Trauma: no lacerations or abrasions Wounds: no wounds Neuro: General: patient oriented x3 and moves all extremities Cranial nerves: Yes Equal, round and reactive pupils present Extrem: General: Yes normal to inspection Right upper extremity: normal to inspection Left upper extremity: normal to inspection Right lower extremity: normal to inspection Left lower extremity: normal to inspection Medical Decision Making Medical Decision Making [facility] Narrative: This is a 33-year-old female, with a history of asthma, who presents emergency department with complaints of congestion, cough, body aches and fevers x4 days. On arrival, vital signs within normal limits, she is nontoxic appearing, afebrile, under no acute distress. On examination, lungs clear to auscultation bilaterally, oropharynx widely patent, TMs unremarkable. Differential diagnoses include influenza, URI, pneumonia-unlikely. Viral swabs were obtained, patient tested positive for influenza A. Discussed findings with patient. Given that she is outside of the window for antiviral, discussed importance of staying hydrated getting plenty of rest. Discharged with a prescription for ibuprofen and Tessalon Perles. Given return precautions. She understands and agrees with plan. Patient stable for discharge. Differential Diagnosis Differential Diagnoses: The differential diagnosis associated with the presentation includes See above Admission/Observation Consideration of admission/observation: Escalation of care including admission/observation considered Escalation of care including admission/observation considered however given workup today not warranted at this time. Lab Data [facility] Lab Attestation statement: I reviewed the patient's lab results. Influenza a positive Labs: Lab Results 04/15/24 Range/Units 10:24 COVID-19 (RONNIE) Negative (Negative) COVID-19 Clin Com See Note Influenza Type A (DANNA) Positive A (Negative) Influenza Type B (DANNA) Negative (Negative) Influenza A & B Note See Note Discharge Plan Discharge Clinical Impression: Influenza A Patient Disposition: Home, Self-Care Instructions: Influenza (ED) Additional Instructions: You were seen in the emergency department due to fevers, body aches, congestion and cough. You tested positive for influenza A. Influenza a, also known as the flu, is a virus, that does not require antibiotic treatment for. Please rest, drink plenty fluids alternate between ibuprofen and Tylenol as needed for pain and symptoms. If any new or worsening symptoms occur including but not limited to abdominal pain, nausea, vomiting, chest pain or shortness of breath, please return for re- evaluation. Prescriptions: New ibuprofen 600 mg tablet 600 mg PO Q6H PRN (Reason: fever or pain) Qty: 30 0RF benzonatate 100 mg capsule 100 mg PO TID PRN (Reason: cough) Qty: 14 0RF No Action albuterol sulfate [ProAir HFA] 90 mcg/actuation HFA aerosol inhaler 2 puff inhalation Q4-6H PRN (Reason: shortness of breath or wheezing) Qty: 8.5 0RF fluticasone propionate 50 mcg/actuation spray,suspension 2 spray intranasal DAILY PRN (Reason: allergy symptoms) 30 Days Qty: 16 5RF Rx Instructions: administer into each nostril ondansetron 4 mg tablet,disintegrating 4 mg PO Q8H PRN (Reason: nausea and vomiting) Qty: 7 0RF pantoprazole [Protonix] 40 mg tablet,delayed release (DR/EC) 40 mg PO DAILY Qty: 14 0RF amoxicillin-pot clavulanate 875-125 mg tablet 1 tab PO BID Qty: 14 0RF sertraline 50 mg tablet 50 mg PO DAILY 30 Days Qty: 30 2RF ibuprofen 400 mg tablet See Rx Instructions PO Q6-8H PRN (Reason: pain) Rx Instructions: Take 1 to 2 tablets PO every 6 to 8 hours with food PRN; Stand Alone Forms: Work/School Release Print Language: Serbian
[2024-02-11 12:05] VITALS: BP 112/68; PULSE 87; RESP 16; TEMP 37.1; O2SAT 99
== END 2024-02-11 12:06 | disposition home or self-care (01) ==
PROVIDERS: Emergency Provider Emergency Medicine; PCP Internal Medicine
DX: J10.1 Influenza due to other identified influenza virus with other respiratory manifestations (principal); J45.909 Unspecified asthma, uncomplicated
CPT/HCPCS: 87502; 87635; 99282; 99283

== ENCOUNTER 2024-04-23 10:00 | Outpatient (AMB) | payer OTHER, SELFPAY ==
--- NOTE | 2024-04-23 10:05 | MHC.OFFVIS ---
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 No complaints. Last Pap/HPV was negative in 06/19 [facility] Medical History Overweight (BMI 25.0-29.9) Vitamin B12 deficiency Vitamin D deficiency Depression COVID-19 Atopic dermatitis Gastritis Asthma Surgical History History of removal of cyst History of tubal ligation Family History Father Asthma Mother Asthma Son Developmental delay, severe ADD (attention deficit disorder) Maternal Grandmother Diabetes Maternal Grandfather No problems noted. Other Mental health problem Social History Household Members: Spouse and Children Housing: Apartment Alcohol intake: never Patient Tobacco Use Status: Current everyday Tobacco user Tobacco use type: Cigarette Cigarettes Per Day: 4 Second Hand Smoke Exposure: Yes service: No Current occupational status: employed Current occupation: [employer] Sexual orientation: Straight/Heterosexual Gender identity: Female Cognitive needs: No Hearing needs: No Vision needs: Yes Female Reproductive History Menstrual Age of Menarche: 13 Date of last menstrual period: 03/24/24 control method: permanent sterilization Total pregnancies: 2 Full term: 2 Number of Living Children: 2 Date of last pap smear: 06/27/22 Review of Systems Const All systems reviewed & are unremarkable except as noted in HPI and below Card Reports as per HPI Resp Reports as per HPI GI Reports as per HPI and Reports no additional complaints Reports as per HPI Physical Exam Const General: cooperative, healthy appearing and comfortable Chest Chest palpation & inspection: normal inspection of the chest and normal palpation of entire chest wall Breast/axilla inspection: normal inspection of the breasts and normal inspection of the axillae Breast/axilla palpation: normal palpation of the breasts, normal palpation of the axillae and no axillary lymphadenopathy Resp Effort & Inspection: normal respiratory effort Auscultation: clear to auscultation bilaterally Percussion: percussion normal Cardio Palpation: normal PMI Rate: regular rate Rhythm: regular rhythm Heart sounds: no murmurs and no rubs Peripheral pulses: Peripheral pulses 2+ throughout GI Inspection: Yes normal to inspection Palpation (GI): Soft to palpation, nontender, no guarding, not rigid and No hepatosplenomegaly present Percussion: Yes normal to percussion Auscultation: normal bowel sounds Rectal Exam - Female: deferred General: Yes bladder normal to palpation External Female Exam: No lesion Speculum Exam - Vagina: normal appearance of the vagina, normal palpation, normal vaginal discharge and not erythematous Speculum Exam - Cervix: normal appearance of the cervix and normal palpation Bimanual exam- vagina & uterus: normal bimanual exam, normal palpation, uterine size normal, bladder normal to palpation, consistency normal and normal palpation Bimanual Exam- Adnexa, other: normal adnexae, no masses and no tenderness Assessment & Plan Assessment & Plan (1) Well woman exam: Code(s): Z01.419 - Encounter for gynecological examination (general) (routine) without abnormal findings Category: Medical Plan: Cotesting not indicated this year. Counseled the patient about the recommended dietary allowance of 1000 mg of Calcium & 600 IU of vitamin D. The patient was instructed to perform monthly self-breast exams and to schedule an annual exam in a year; All questions answered and the patient verbalized understanding. Instructed the patient to schedule annual exam in a year Coding Level of Care Code Est Pt Prev Care 18-39y(53109) Diagnoses Well woman exam Z01.419
[2024-04-23 10:09] VITALS: BP 120/74; BMI 27.8
== END 2024-04-23 10:37 | disposition home or self-care (01) ==
PROVIDERS: PCP Internal Medicine; Visit Provider Obstetrics & Gynecology
DX: Z01.419 Encounter for gynecological examination (general) (routine) without abnormal findings (principal)
CPT/HCPCS: 99395

== ENCOUNTER → 2024-04-23 10:00 | Outpatient (BNVA) | payer OTHER, SELFPAY | PROVIDERS: Visit Provider Obstetrics & Gynecology | DX: Z01.419 Encounter for gynecological examination (general) (routine) without abnormal findings (principal) | CPT/HCPCS: 99395 ==

== ENCOUNTER 2024-05-23 12:05 | Emergency (ER) | payer OTHER, SELFPAY ==
[2024-05-23 12:11] VITALS: BP 121/71; PULSE 80; RESP 17; TEMP 36.6; O2SAT 99; BMI 28.4
--- NOTE | 2024-05-23 12:12 | ED.GENADULT ---
HPI - General Adult General Chief complaint: Allergic Reaction Stated complaint: allergies Time Seen by Provider: 05/23/24 12:29 Source: patient Mode of arrival: ambulatory Limitations: no limitations History of Present Illness HPI narrative: Patient is a 33-year-old female who presents emergency department for evaluation of sneezing and rhinorrhea for the past 3 months. States it occurs most days this week but some days are better than others she denies nasal congestion, sinus pain, headaches, cough. She has been taking Benadryl and loratadine without much improvement. She tried Flonase in the past but only took it 1 day and did not notice any change so she stopped taking it. Denies any other recent new medications, environmental allergens. She recently moved into a new apartment 6 months ago, states she is unaware as to whether something in the home may be bothering her. She denies chest pain, shortness of breath, difficulty breathing. Related Data Previous Rx's ?Medication ?Instructions ?Recorded albuterol sulfate 90 mcg/actuation 2 puff inhalation Q4-6H PRN 01/24/22 aerosol inhaler (ProAir HFA) shortness of breath or wheezing #8.5 grams fluticasone propionate 50 2 spray intranasal DAILY PRN 11/06/22 mcg/actuation nasal allergy symptoms 30 days #16 grams spray,suspension ondansetron 4 mg disintegrating 4 mg PO Q8H PRN nausea and 05/28/23 tablet vomiting #7 tabs pantoprazole 40 mg tablet,delayed 40 mg PO DAILY #14 tabs 05/28/23 release (Protonix) sertraline 50 mg tablet 50 mg PO DAILY 30 days #30 tabs 09/05/23 ibuprofen 600 mg tablet 600 mg PO Q6H PRN fever or pain 02/11/24 #30 tabs fluticasone furoate 27.5 2 spray intranasal DAILY #5.9 mL 05/23/24 mcg/actuation nasal spray,suspension Allergies Allergy/AdvReac Type Severity Reaction Status Date / Time No Known Allergies Allergy Verified 05/23/24 12:15 Review of Systems Review of Systems: Yes all other systems are reviewed and are negative PMFSH Past Medical History Attestation statement: The following information was validated with the patient. Source: old records reviewed Medical History Overweight (BMI 25.0-29.9) Vitamin B12 deficiency Vitamin D deficiency Depression COVID-19 Atopic dermatitis Gastritis Asthma Surgical History History of removal of cyst History of tubal ligation Family History Family History Father Asthma Mother Asthma Son Developmental delay, severe ADD (attention deficit disorder) Maternal Grandmother Diabetes Maternal Grandfather No problems noted. Other Mental health problem Social History Social History Household Members: Spouse and Children Housing: Apartment Alcohol intake: never Patient Tobacco Use Status: Current everyday Tobacco user Tobacco use type: Cigarette Cigarettes Per Day: 4 Second Hand Smoke Exposure: Yes Advance Directives: No Advance Directives Information Provided: Yes Do you have a plan to hurt others: No Plan service: No Current occupational status: employed Current occupation: [employer] Sexual orientation: Straight/Heterosexual Gender identity: Female Cognitive needs: No Hearing needs: No Vision needs: Yes Physical Exam ED Vital Signs: Vital Signs - 24 hr 05/23/24 12:11 Temperature 97.9 F Pulse Rate 80 Respiratory Rate 17 Blood Pressure 121/71 Pulse Oximetry 99 Oxygen Delivery Method Room Air BMI result Body Mass Index 28.4 Appearance: Alert.?Oriented to person, place and time. No acute distress.?Normal affect. Eyes: Pupils equal, round and reactive to light.? EOMI. No conjunctivitis. ENT: Pharynx normal.??TM normal bilaterally, no effusions. No sinus tenderness upon palpation. Bilateral nares are erythematous Neck: Normal inspection.? Neck supple.?? CVS: Heart sounds normal. Normal heart rate and rhythm.? Pulses normal.?? Respiratory: No respiratory distress.? Lung sounds clear to auscultation bilaterally?? Abdomen: Soft and non-tender. Normoactive bowel sounds. Skin: Skin warm and dry.? Normal skin color.? Extremities: No lower extremity edema.? Neuro: Moves all extremities spontaneously. Sensation intact bilaterally. Ambulates with normal steady gait. Course Course Course Narrative: This is a Rapid Medical Examination (RME) performed by Rodger Vasquez PA-C in triage. Full HPI, ROS, assessment and treatment plan per primary provider in the Main ED. 33 yo female hx of asthma, atopic dermatitis, depression here for eval of sneezing and nasal congestion x3 months. taking benadryl and loratadine without relief. reports constant symptoms since 0 today. called PCP however is unable to get an appointment until August. no known allergies. reports moving to new apartment 2 mo ago. no new pets. no new lotions/detergents/soaps. +lungs clear, eyes tearing Plan: eval by primary provider. Medical Decision Making Medical Decision Making [facility] Narrative: Patient is a 33-year-old female with past medical history of asthma, atopic dermatitis, depression presenting to emergency department for evaluation of rhinorrhea as per HPI. She has no other infectious symptoms. Symptoms have been ongoing over the past 3 months. Had minimal relief with Benadryl and loratadine. Her history and physical examination at this time is most consistent with rhinitis, given her history of asthma and atopic dermatitis. We discussed appropriate management with Flonase and instructed on appropriate usage, advised to take for at least 1 week to determine efficacy. If she does not notice any improvement, she may follow up with her primary care provider and they may consider alternative treatment options, such as intranasal antihistamines. She has no respiratory distress, no angioedema, no sinus tenderness upon palpation, lower suspicion for acute bacterial sinusitis. Stable for discharge home, discussed worrisome signs and symptoms that would warrant re-evaluation in the emergency department. All questions answered. Differential Diagnosis Differential Diagnoses: The differential diagnosis associated with the presentation includes (See narrative above) External Record Review External record reviewed: Outpatient record Prescription Management I considered prescription management with: Other (See narrative above) Discharge Plan Discharge Clinical Impression: Acute rhinitis Patient Disposition: Home, Self-Care Instructions: How to Use Nasal [place] (ED), Postnasal Drip (DC) Additional Instructions: As discussed, the fluticasone nasal spray needs to be used daily for at least 1 week to noticed full effects. If you stop taking this symptoms may return. You may continue taking [id number] oral allergy medication as well. Continue to contact your primary care doctor's office if your symptoms do not improve, there is alternative medication that they may consider if this is not helpful Prescriptions: New fluticasone furoate 27.5 mcg/actuation spray,suspension 2 spray intranasal DAILY Qty: 5.9 0RF Rx Instructions: into each nostril No Action albuterol sulfate [ProAir HFA] 90 mcg/actuation HFA aerosol inhaler 2 puff inhalation Q4-6H PRN (Reason: shortness of breath or wheezing) Qty: 8.5 0RF fluticasone propionate 50 mcg/actuation spray,suspension 2 spray intranasal DAILY PRN (Reason: allergy symptoms) 30 Days Qty: 16 5RF Rx Instructions: administer into each nostril ondansetron 4 mg tablet,disintegrating 4 mg PO Q8H PRN (Reason: nausea and vomiting) Qty: 7 0RF pantoprazole [Protonix] 40 mg tablet,delayed release (DR/EC) 40 mg PO DAILY Qty: 14 0RF ibuprofen 600 mg tablet 600 mg PO Q6H PRN (Reason: fever or pain) Qty: 30 0RF sertraline 50 mg tablet 50 mg PO DAILY 30 Days Qty: 30 2RF Referrals: Spenser Mathew MD [Primary Care Provider] - Print Language: Danish
[2024-05-23 13:23] VITALS: BP 121/71; PULSE 80; RESP 17; TEMP 36.6; O2SAT 99
== END 2024-05-23 13:24 | disposition home or self-care (01) ==
PROVIDERS: Emergency Provider Emergency Medicine; PCP Internal Medicine
DX: J00 Acute nasopharyngitis [common cold] (principal); J45.909 Unspecified asthma, uncomplicated
CPT/HCPCS: 99282; 99283

== ENCOUNTER 2024-07-02 10:21 | Outpatient (AMB) | payer OTHER, SELFPAY ==
--- NOTE | 2024-07-02 10:25 | MHC.OFFWIV ---
Intake Vital Signs 07/02/24 10:27 Height 5 ft 3 in Weight 155 lb BMI 27.5 BP 118/74 Blood Pressure Location Lt brachial Position Sitting Pulse 68 Pulse Source Pulse Oximeter Temp 98.2 F Temp Source Oral Pulse Oximetry (%) 99 Oxygen Delivery Method Room Air Intake Visit Reasons: EP Allergies Intake Note: pt c/o allergy symptoms. Ongoing 3 months Patient Tobacco Use Status: Current everyday Tobacco user Allergies No Known Allergies Allergy (Verified 07/02/24 10:25) Do you need a note to return to daycare/school/sports/work: No HPI HPI Comments History of Present Illness Details Patient is a 34-year-old female complaining of sneezing, stuffy nose and a sore throat for 3 months. She states she moved into a new apartment 3 months ago and this is when her symptoms started. She has been taking Flonase every day with some relief but her symptoms are overall persistent. She has left 6 messages for her primary care doctor to see an hair boiler with no response. She does not take a daily allergy pill. She denies any fevers, productive cough or shortness of breath. [facility] Medical History Overweight (BMI 25.0-29.9) Vitamin B12 deficiency Vitamin D deficiency Depression COVID-19 Atopic dermatitis Gastritis Asthma Surgical History History of removal of cyst History of tubal ligation Family History Father Asthma Mother Asthma Son Developmental delay, severe ADD (attention deficit disorder) Maternal Grandmother Diabetes Maternal Grandfather No problems noted. Other Mental health problem Social History Household Members: Spouse and Children Housing: Apartment Alcohol intake: never Patient Tobacco Use Status: Current everyday Tobacco user Tobacco use type: Cigarette Cigarettes Per Day: 4 Second Hand Smoke Exposure: Yes service: No Current occupational status: employed Current occupation: [employer] Sexual orientation: Straight/Heterosexual Gender identity: Female Cognitive needs: No Hearing needs: No Vision needs: Yes Female Reproductive History Menstrual Age of Menarche: 13 Review of Systems Const All systems reviewed & are unremarkable except as noted in HPI and below Physical Exam Vital Signs: BMI result Body Mass Index 27.5 Const General: cooperative, healthy appearing, comfortable and no acute distress Orientation/consciousness: patient oriented x3 Limitations: no limitations HEENT Head: Yes normal to inspection Ears: hearing grossly normal bilaterally, external ears normal and TM's normal bilaterally General nose exam: Normal external nose present, Normal nares present and No nasal discharge present Face and sinus: Yes normal facial exam and Yes sinuses nontender Mouth: Normal oral and palatal mucosa present and moist mucous membranes Throat: Yes tonsils normal, Yes uvula midline and Yes posterior oropharynx abnormal (Erythema) Eyes General: appearance normal, both eyes and all related structures Neck Neck: Yes normal visual inspection Resp Effort & Inspection: normal respiratory effort, able to speak in complete sentences, Actively coughing, no respiratory distress, not tachypneic, no tripod positioning and no use of accessory muscles Skin General skin exam: no rashes or lesions noted Neuro General: patient oriented x3 Extrem General: Yes normal to inspection and Yes no clubbing, cyanosis or edema Assessment & Plan Assessment & Plan (1) Environmental allergies: Code(s): Z91.09 - Other allergy status, other than to drugs and biological substances Plan: Recommended adding a daily allergy pill to her regimen such as Xyzal. Also recommended going to her PCP's office and asking for a referral to an hair boiler. Also recommended she consider moving because clearly her apartment has something in it that is bothering her allergies. Plan see above Coding Level of Care Code Est Pt Level 3 (14671) Diagnoses Environmental allergies Z91.09
[2024-07-02 10:27] VITALS: BP 118/74; PULSE 68; TEMP 36.8; O2SAT 99; BMI 27.5
== END 2024-07-02 11:22 | disposition home or self-care (01) ==
PROVIDERS: PCP Internal Medicine; Visit Provider Physician Assistant
DX: Z91.09 Other allergy status, other than to drugs and biological substances (principal)
CPT/HCPCS: 99213

== ENCOUNTER 2024-07-09 10:44 | Outpatient (AMB) | payer OTHER, SELFPAY ==
[2024-07-09 10:45] VITALS: BP 104/68; PULSE 76; O2SAT 97; BMI 27.8
--- NOTE | 2024-07-09 10:45 | A.OFFPC_ITS ---
Vital Signs 07/09/24 10:45 Height 5 ft 3 in Weight 157 lb 0.6 oz BMI 27.8 BP 104/68 Blood Pressure Location Lt brachial Position Sitting Pulse 76 Pulse Source Pulse Oximeter Pulse Oximetry (%) 97 Oxygen Delivery Method Room Air Intake Visit Reasons: referral to an polish compounder follow up walk in 07/02 Medicaid Specialist Required: No Allergies No Known Allergies Allergy (Verified 07/09/24 10:45) Medication List - Last Reconciled 07/09/24 by Shannon Corrigan PA-C albuterol sulfate 90 mcg/actuation (ProAir HFA) 2 puffs inhalation Q4-6H PRN fluticasone furoate 27.5 mcg/actuation 2 sprays intranasal DAILY ibuprofen 600 mg PO Q6H PRN Tobacco use date assessed: 07/09/24 Dental Screening Dental Screen Date: 07/09/24 HPI referral to an polish compounder follow up walk in 07/02 HPI Details 34-year-old female with past medical his tory of asthma, vitamin-D and B12 deficiency, and depression last seen by Dr. Mathew coming in for acute problem. Patient was recently seen at urgent care for environmental allergies and they recommended starting an [id number] allergy medications such as Xyzal for symptom management. Patient states she has been taking [id number] Xyzal with mild relief of symptoms. She did also mentioned she stopped using all of her cleaning products and has noticed a good relief in her symptoms. She does continue to still have a stuffy nose and mentioned it is very tight from using the Flonase. [facility] Medical History Overweight (BMI 25.0-29.9) Vitamin B12 deficiency Vitamin D deficiency Depression COVID-19 Atopic dermatitis Gastritis Asthma Surgical History History of removal of cyst History of tubal ligation Family History Father Asthma Mother Asthma Son Developmental delay, severe ADD (attention deficit disorder) Maternal Grandmother Diabetes Maternal Grandfather No problems noted. 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 How often do you have a drink containing alcohol?: Never 3. How often do you have six or more drinks on one occasion?: Never Total Score: 0 Score Reviewed/Action Taken: Yes ASIA-7 AMB Questionnaire ASIA-7 Date ASAI - 7 assessed: 09/05/23 Source: Developed by Drs. Gm Smith, Lu Diaz, Leonides Montero and colleagues, with an educational esha from [employer]. Review of Systems Const Denies fever(s) Eyes Reports no additional complaints ENT Details: Stuffy and runny nose with dryness Denies sore throat Card Denies chest pain and Denies dyspnea Resp Denies cough and Denies dyspnea GI Reports no additional complaints Reports no additional complaints Musc Reports no additional complaints Skin/Breast Reports system reviewed and no additional complaints, except as documented Physical exam (Primary Care) Vital Signs: Last Vital Signs Pulse 76 07/09/24 10:45 BP 104/68 07/09/24 10:45 Pulse Ox 97 07/09/24 10:45 Oxygen Delivery Method Room Air 07/09/24 10:45 BMI result Body Mass Index 27.8 Tobacco/Smoking Status: Tobacco use Status Tobacco use date assessed 07/09/24 07/09/24 10:46 Patient Tobacco Use Status Current everyday Tobacco 07/09/24 10:46 Tobacco use type Cigarette 07/09/24 10:46 Thrive Assessment: Date of Thrive Assessment Date Thrive assessed 09/05/23 07/09/24 10:46 Const General: cooperative, healthy appearing, comfortable and no acute distress Orientation/consciousness: patient oriented x3 HENMT Head: Yes normocephalic Ears: hearing grossly normal bilaterally General nose exam: Normal external nose present Eyes General: appearance normal, both eyes and all related structures Conjunctivae: conjunctivae normal Neck Neck: Yes full ROM and Yes no lymphadenopathy Resp Effort & Inspection: normal respiratory effort Auscultation: clear to auscultation bilaterally, no crackles, no rales, no rhonchi and no wheezes Cardio Rate: regular rate Rhythm: regular rhythm Skin General skin exam: no rashes or lesions noted Neuro General: patient oriented x3 Gait exam (Neuro): Normal gait present Extrem General: Yes normal to inspection, Yes full ROM and No edema Psych Affect: normal affect Attitude: cooperative Insight: Good insight present (Psych) Judgement: Good judgement present (Psych) Assessment and Plan Assessment & Plan (1) Environmental allergies: Code(s): Z91.09 - Other allergy status, other than to drugs and biological substances Plan: Patient has been doing well in eliminating possible allergens and has seen mild relief in her symptoms. She was taking Xyzal which was not effective for her and we will trial fexofenadine instead. Advised patient to continue using Flonase but also to use saline nasal spray to help hydrate her dry nose. Follow up with polish compounder. Plan This note was constructed using voice recognition software. While every effort has been made to ensure accuracy and emergency room nurse, still areas may have been included sometimes these areas may affect the content or meeting of the given symptoms. Total time spent caring for the patient today was 20 minutes. This includes time spent before the visit reviewing the chart, time spent during the visit, and time spent after the visit and documentation. Medications: New fexofenadine (Allergy Relief (fexofenadine)) 180 mg PO DAILY 30 tabs 3RF Coding Level of Care Code Est Pt Level 3 (47410) Diagnoses Environmental allergies Z91.09
== END 2024-07-09 11:00 | disposition home or self-care (01) ==
PROVIDERS: PCP Internal Medicine
DX: Z91.09 Other allergy status, other than to drugs and biological substances (principal); E55.9 Vitamin D deficiency, unspecified; F33.9 Major depressive disorder, recurrent, unspecified; J45.909 Unspecified asthma, uncomplicated
CPT/HCPCS: 99213

== ENCOUNTER 2024-12-03 16:47 | Outpatient (AMB) | payer OTHER, SELFPAY ==
[2024-12-03 16:54] VITALS: BP 120/76; PULSE 86; O2SAT 98; BMI 27.8
--- NOTE | 2024-12-03 16:54 | A.OFFPC_ITS ---
Vital Signs 12/03/24 16:54 Height 5 ft 3 in Weight 157 lb BMI 27.8 BP 120/76 Blood Pressure Location Lt brachial Position Sitting Pulse 86 Pulse Source Pulse Oximeter Pulse Oximetry (%) 98 Oxygen Delivery Method Room Air Intake Visit Reasons: Annual PE Acoustic Intelligence Specialist Required: No Accompanied by: Self / Same As Patient Allergies No Known Allergies Allergy (Verified 12/03/24 17:05) Medication List - Last Reconciled 12/03/24 by Spenser Mathew MD adalimumab (Humira(CF) Pen) 80 mg subcut Q2W albuterol sulfate 90 mcg/actuation (ProAir HFA) 2 puffs inhalation Q4-6H PRN fexofenadine (Allergy Relief (fexofenadine)) 180 mg PO DAILY fluticasone furoate 27.5 mcg/actuation 2 sprays intranasal DAILY ibuprofen 600 mg PO Q6H PRN Tobacco use date assessed: 12/03/24 Dental Screening Dental Screen Date: 12/03/24 Did you have a dental visit in the last 12 months?: Yes Did you have a dental problem in the last 6 months where you did not have access to dental care?: No Was dental information given to patient?: Patient has dentist HPI Annual PE HPI Details Patient comes in today for her annual physical examination States that she feels okay She has been started on Humira by Dr. Roman for her hidradenitis suppurative recently, which has apparently not responded to conventional treatments and states that she just received her first dose of Humira earlier today and is hoping that this will work where all of the other medications that she has tried so far failed She denies any headaches or dizziness Denies any chest pains, no shortness of breath No nausea/vomiting, no abdominal pain No change in bowel habits noted She denies any acute urinary symptoms Patient adds that she has been having some problems with her vision in both eyes for a while now and feels that her vision has been getting worse lately States that she tried to schedule an appointment with Dr. Merida upstairs but was advised that she has been discharged from the practice in the past for repeated no-shows and that she has to get a referral from her PCP to find another marriage counselor minister She is up-to-date with her annual gynecologic exam and pap smear - she last had a normal Pap smear done on 06/27/2022 and her next gynecology exam is scheduled with Dr. Ferrara on 04/29/2025 [facility] Medical History Allergic rhinitis Hidradenitis suppurativa Overweight (BMI 25.0-29.9) Vitamin B12 deficiency Vitamin D deficiency Depression COVID-19 Atopic dermatitis Gastritis Asthma Surgical History History of removal of cyst History of tubal ligation Family History Father Asthma Mother Asthma Son Developmental delay, severe ADD (attention deficit disorder) Maternal Grandmother Diabetes Maternal Grandfather No problems noted. Other Mental health problem Social History Household Members: Spouse and Children Housing: Apartment Alcohol intake: never Patient Tobacco Use Status: Current everyday Tobacco user Tobacco use type: Cigarette Cigarettes Per Day: 4 e-Cigarette/Vaping Use: Never Used Second Hand Smoke Exposure: Yes service: No Current occupational status: employed Current occupation: [employer] Sexual orientation: Straight/Heterosexual Gender identity: Female Cognitive needs: No Hearing needs: No Vision needs: Yes Female Reproductive History Menstrual Age of Menarche: 13 Questionnaire PHQ-9 Over the last 2 weeks, how often have you been bothered by any of the following problems? 1. Little interest or pleasure in doing things: not at all 2. Feeling down, depressed, or hopeless: not at all 3. Trouble falling or staying asleep, or sleeping too much: not at all 4. Feeling tired or having little energy: not at all 5. Poor appetite or overeating: not at all 6. Feeling bad about yourself - or that you are a failure or have let yourself or your family down: not at all 7. Trouble concentrating on things, such as reading the newspaper or watching television: not at all 8. Moving or speaking so slowly that other people could have noticed. Or the opposite - being so fidgety or restless that you have been moving around a lot more than usual: not at all 9. Thoughts that you would be better off or of hurting yourself in some way: not at all Total score: 0 Depression Screening Interpretation: Negative Depression Screening Done: Yes 96368 - PHQ-9 Billing: Yes Source: Developed by Drs. Gm Smith, Lu Diaz, Leonides Montero and colleagues, with an educational esha from [employer]. Thrive Questionnaire Date Thrive assessed: 12/03/24 I am a: Patient What is your living situation today?: I have a steady place to live Within the past 12 months, did the food you bought not last and you didn't have the money to get more?: Often true Within the past 12 months, did you worry whether your food would run out before you got money to buy more?: Often true Do you have trouble paying for medicines?: No Do you have trouble getting transportation to medical appointments?: No Do you have trouble paying your heating and electricity bill?: No Do you have trouble taking care of your child, family member or friend?: No Do you have trouble with day-to-day activities such as bathing, preparing meals, shopping, managing finances, etc.?: No Are you currently unemployed and looking for a job?: No Are you interested in more education?: No Please select the resources that you would like help with: None Currently or been in a relationship where the following occur: No concerns reported THRIVE Score: 2 AUDIT C Alcohol Use Questionnaire (AUDIT-C) 1. How often do you have a drink containing alcohol?: Never 3. How often do you have six or more drinks on one occasion?: Never Total Score: 0 Score Reviewed/Action Taken: Yes ASIA-7 AMB Questionnaire ASIA-7 Date ASIA - 7 assessed: 12/03/24 Feeling nervous, anxious, or on edge: 0 = Not at all Not being able to stop or control worryin = Not at all Worrying too much about different things: 0 = Not at all Trouble relaxin = Not at all Being so restless that it is hard to sit still: 0 = Not at all Becoming easily annoyed or irritable: 0 = Not at all Feeling afraid as if something awful might happen: 0 = Not at all Total ASIA-7 score (0-4 normal; 5-9 mild; 10-14 moderate; 15-21 severe): 0 Source: Developed by Drs. Gm Smith, Lu Diaz, Leonides Montero and colleagues, with an educational esha from [employer]. Review of Systems Const No Unobtainable due to mental condition Denies chills, Denies fatigue, Denies fever(s), Denies headache(s) and Denies malaise Eyes Reports blurry vision (in both eyes), Denies change in vision, Denies irritation and Denies itchy eyes ENT Denies dysphagia, Denies dizziness, Denies otalgia, Denies headache(s), Denies nasal congestion, Denies neck pain, Denies odynophagia, Denies sinus pain and Denies sore throat Card Denies chest pain, Denies rapid heart rate, Denies irregular heart rhythm, Denies palpitations and Denies dyspnea Resp Denies chest congestion, Denies cough, Denies dyspnea and Denies wheezing GI Denies abdominal pain, Denies bloating, Denies constipation, Denies dysphagia, Denies heartburn, Denies diarrhea, Denies nausea, Denies odynophagia and Denies vomiting Denies hematuria, Denies urinary frequency, Denies dysuria, Denies urinary incontinence and Denies urinary urgency Musc Denies back pain, Denies arthralgias, Denies joint swelling, Denies muscle weakness and Denies neck pain Skin/Breast Details: (+) scattered multiple scars from previous recurrent boils/abscesses Denies breast pain, Denies breast mass, Denies change in pigmentation, Denies rash and Denies unusual bruising Neuro Denies dizziness, Denies headache(s) and Denies paresthesias Psych Denies anxiety and Denies depression Endo Denies fatigue and Denies palpitations Harvey/Lymph Denies easy bruising Aller/Immun Denies itchy eyes and Denies wheezing Physical exam (Primary Care) Vital Signs: Last Vital Signs Pulse 86 12/03/24 16:54 BP 120/76 12/03/24 16:54 Pulse Ox 98 12/03/24 16:54 Oxygen Delivery Method Room Air 12/03/24 16:54 BMI result Body Mass Index 27.8 Tobacco/Smoking Status: Tobacco use Status Tobacco use date assessed 12/03/24 12/03/24 16:59 Patient Tobacco Use Status Current everyday Tobacco 12/03/24 16:59 Tobacco use type Cigarette 02/05/25 16:59 e-Cigarette/Vaping Use Never Used 12/03/24 16:59 PHQ-9: PHQ-9 Score PHQ-9: Total score 0 12/03/24 17:07 Depression Screening Interpretation: Negative Thrive Assessment: Date of Thrive Assessment Date Thrive assessed 12/03/24 12/03/24 16:59 Currently or been in a relationship where the following occur: No concerns reported Const General: no acute distress, alert and awake Orientation/consciousness: patient oriented x3 HENMT Head: Yes normocephalic and Yes atraumatic Ears: external ears normal, TM's normal bilaterally and EAC's normal General nose exam: No nasal discharge present Face and sinus: Yes normal facial exam and Yes sinuses nontender Teeth and gingiva: dentition normal Throat: Yes posterior oropharynx normal and Yes tonsils normal (no TP congestion) Eyes Eyelids: Yes eyelids normal Conjunctivae: conjunctivae normal Pupils: Equal, round and reactive pupils present EOM: EOMs intact bilaterally Neck Neck: Yes no lymphadenopathy and Yes supple Thyroid: Thyroid normal Resp Auscultation: clear to auscultation bilaterally, no rales and no wheezes Cardio Rate: regular rate Rhythm: regular rhythm Heart sounds: no murmurs GI Palpation (GI): Soft to palpation, nontender and No hepatosplenomegaly present Auscultation: normal bowel sounds General: Yes no CVA tenderness Back/Spine/Pelvis Back: no CVA tenderness Thoracic/Lumbar Spine: thoracic and lumbar spine normal to inspection Skin Other: (+) multiple scattered scars, especially near the axillary areas, from previous recurrent boils/abscesses Rashes: no rashes Neuro General: patient oriented x3, moves all extremities, no focal motor deficits and CN's II-XI intact bilaterally Cranial nerves: Yes Equal, round and reactive pupils present Cognition (Neuro): normal cognition Gait exam (Neuro): Normal gait present Extrem General: Yes no clubbing, cyanosis or edema Coding Level of Care Code Est Pt Prev Care 18-39y([id number]) Diagnoses Annual physical exam Z00.00 Hidradenitis suppurativa L73.2 Vitamin D deficiency E55.9 Mild intermittent asthma without complication J45.20 Asthma severity: mild Asthma persistence: intermittent Asthma complication type: uncomplicated Allergic rhinitis, unspecified seasonality, unspecified trigger J30.9 Allergic rhinitis trigger: unspecified Allergic rhinitis seasonality: unspecified Vitamin B12 deficiency E53.8 Impaired vision in both eyes H54.3 Episode of recurrent major depressive disorder, unspecified depression episode severity F33.9 Depression Type: major depressive disorder Major depression recurrence: recurrent Active/Remission status: currently active Major depression episode severity: unspecified Overweight (BMI 25.0-29.9) E66.3 Additional Codes PHQ-9 - 12375 - PHQ-9 Billing: Yes ([id number]) Assessment & Plan Assessment & Plan (1) Annual physical exam: Code(s): Z00.00 - Encounter for general adult medical examination without abnormal findings Category: Medical Plan: Check labs She is currently up-to-date with her annual gynecologic exam and pap smear (2) Hidradenitis suppurativa: Code(s): L73.2 - Hidradenitis suppurativa Category: Medical Plan: Continue Humira 80 mg SQ every 2 weeks - patient states that she just received her 1st dose earlier today Follow up with dermatology (Dr. Roman) as scheduled (3) Vitamin D deficiency: Code(s): E55.9 - Vitamin D deficiency, unspecified Category: Medical Plan: Patient states that she has not been taking her Vitamin D for a while now Will recheck her Vitamin D level for follow up (4) Asthma: Code(s): J45.909 - Unspecified asthma, uncomplicated Category: Medical Qualifiers: Asthma severity: mild Asthma persistence: intermittent Asthma complication type: uncomplicated Qualified Code(s): J45.20 - Mild intermittent asthma, uncomplicated Plan: Stable/controlled Continue Albuterol HFA 1 to 2 inhalations every 6 hours PRN (5) Allergic rhinitis: Code(s): J30.9 - Allergic rhinitis, unspecified Category: Medical Qualifiers: Allergic rhinitis trigger: unspecified Allergic rhinitis seasonality: unspecified Qualified Code(s): J30.9 - Allergic rhinitis, unspecified Plan: Patient states that she has taken multiple allergy meds in the past with little to no relief, including Xyzal She is currently taking Fexofenadine 180 mg QD PRN Continue Fluticasone nasal spray QD Will consider referring her for allergy testing if her symptoms continue to recur frequently - will wait for a while and see if Humira, which she just started earlier today, will help modify her symptoms and help control them or not (6) Vitamin B12 deficiency: Code(s): E53.8 - Deficiency of other specified B group vitamins Category: Medical Plan: Patient's Vitamin B12 level was low at 190 pg/ml when last checked on 05/29/2022 Will recheck her Vitamin B12 level for follow up (7) Impaired vision in both eyes: Code(s): H54.3 - Unqualified visual loss, both eyes Category: Medical Plan: Will refer her to ophthalmology for further evaluation and management (8) Depression: Code(s): F32.A - Depression, unspecified Category: Medical Qualifiers: Depression Type: major depressive disorder Major depression recurrence: recurrent Active/Remission status: currently active Major depression episode severity: unspecified Qualified Code(s): F33.9 - Major depressive disorder, recurrent, unspecified Plan: She was started on a trial of Sertraline 50 mg QD a couple of years ago in 05/2022 but she is currently no longer on the medication Patient is not clear how long she tried it but admits that she has not been on it for a while now and declines any other Rx at this time, as she states that she no longer feels depressed (9) Overweight (BMI 25.0-29.9): Code(s): E66.3 - Overweight Category: Medical Plan: Reinforced diet/exercise as tolerated/lose weight Plan Follow up in 6 months Orders: Orders Complete Blood Count Auto Diff 12/03/24 D64.9 - Anemia, unspecified, Z00.00 - Encounter for general adult medical examination without abnormal findings Comprehensive [place]. Panel Fast 12/03/24 E78.00 - Pure hypercholesterolemia, unspecified, Z00.00 - Encounter for general adult medical examination without abnormal findings Lipid Panel 12/03/24 E78.00 - Pure hypercholesterolemia, unspecified, Z00.00 - Encounter for general adult medical examination without abnormal findings TSH reflex Free T4 12/03/24 E78.00 - Pure hypercholesterolemia, unspecified, Z00.00 - Encounter for general adult medical examination without abnormal findings UA CC w/rflx Micro + Cult 12/03/24 R30.0 - Dysuria, Z00.00 - Encounter for general adult medical examination without abnormal findings Vitamin D 25-OH Total 12/03/24 E55.9 - Vitamin D deficiency, unspecified, Z00.00 - Encounter for general adult medical examination without abnormal findings Vitamin B12 and Folate 12/03/24 E53.8 - Deficiency of other specified B group vitamins Referrals Ophthalmology Referral H54.3 - Unqualified visual loss, both eyes
== END 2024-12-03 17:12 | disposition home or self-care (01) ==
PROVIDERS: PCP Internal Medicine; Visit Provider Internal Medicine
DX: Z00.00 Encounter for general adult medical examination without abnormal findings (principal); F33.9 Major depressive disorder, recurrent, unspecified; E66.3 Overweight; Z68.27 Body mass index [BMI] 27.0-27.9, adult; L73.2 Hidradenitis suppurativa; E55.9 Vitamin D deficiency, unspecified; J45.20 Mild intermittent asthma, uncomplicated; J30.9 Allergic rhinitis, unspecified; E53.8 Deficiency of other specified B group vitamins; H54.3 Unqualified visual loss, both eyes

== ENCOUNTER → 2024-12-03 16:47 | Outpatient (BNVA) | payer OTHER, SELFPAY | PROVIDERS: PCP Internal Medicine; Visit Provider Internal Medicine | DX: Z00.00 Encounter for general adult medical examination without abnormal findings (principal); L73.2 Hidradenitis suppurativa; E55.9 Vitamin D deficiency, unspecified; J45.20 Mild intermittent asthma, uncomplicated; J30.9 Allergic rhinitis, unspecified; E53.8 Deficiency of other specified B group vitamins; H54.3 Unqualified visual loss, both eyes; F33.9 Major depressive disorder, recurrent, unspecified; E66.3 Overweight | CPT/HCPCS: 96127; 99395 ==

== ENCOUNTER 2024-12-10 08:40 | Emergency (ER) | payer OTHER, SELFPAY ==
[2024-12-10 08:53] VITALS: BP 106/54; PULSE 92; RESP 20; TEMP 36.9; O2SAT 99; BMI 24.9
[2024-12-10 09:49] LABS: Influenza A PCR NEGATIVE (Negative); Influenza B PCR NEGATIVE (Negative); Resp Syncy Virus RNA Qual PCR NEGATIVE (Negative); SARS COV2 PCR INHOUSE POSITIVE (Negative)
[2024-12-10 12:48] VITALS: BP 100/49; PULSE 86; RESP 20; TEMP 37.1; O2SAT 99
--- NOTE | 2024-12-10 12:48 | ED.URI ---
HPI - URI/Sore Throat General Chief Complaint: Upper Respiratory Symptoms Stated Complaint: Flu Time Seen by Provider: 12/10/24 12:48 Source: patient, RN notes reviewed and old records reviewed Mode of arrival: ambulatory History of Present Illness ED Provider: Katelynn Mejia PA-C HPI Narrative: 34-year-old female with a past medical history of asthma, gastritis, depression, presenting to the ED complaining of COVID-19 positive x today on home test. Reports myalgias, chills, low-grade fever. Denies cough, CP/SOB. + sick contact going to child at home with COVID-19. denies travel Related Data Home Medications ?Medication ?Instructions ?Recorded ?Confirmed adalimumab 80 mg/0.8 mL 80 mg subcut Q2W 12/03/24 12/03/24 subcutaneous pen kit (Humira(CF) Pen) Previous Rx's ?Medication ?Instructions ?Recorded albuterol sulfate 90 mcg/actuation 2 puff inhalation Q4-6H PRN 01/24/22 aerosol inhaler (ProAir HFA) shortness of breath or wheezing #8.5 grams ibuprofen 600 mg tablet 600 mg PO Q6H PRN fever or pain 02/11/24 #30 tabs fluticasone furoate 27.5 2 spray intranasal DAILY #5.9 mL 05/23/24 mcg/actuation nasal spray,suspension fexofenadine 180 mg tablet 180 mg PO DAILY #30 tabs 07/09/24 (Allergy Relief (fexofenadine)) Allergies Allergy/AdvReac Type Severity Reaction Status Date / Time No Known Allergies Allergy Verified 12/10/24 08:56 Review of Systems Review of Systems: Yes all other systems are reviewed and are negative Constitutional: Constitutional: Reports as per HPI [facility] Past Medical History Attestation statement: The following information was validated with the patient. Source: old records reviewed Medical History Allergic rhinitis Hidradenitis suppurativa Overweight (BMI 25.0-29.9) Vitamin B12 deficiency Vitamin D deficiency Depression COVID-19 Atopic dermatitis Gastritis Asthma Surgical History History of removal of cyst History of tubal ligation Family History Family History Father Asthma Mother Asthma Son Developmental delay, severe ADD (attention deficit disorder) Maternal Grandmother Diabetes Maternal Grandfather No problems noted. Other Mental health problem Social History Social History Household Members: Spouse and Children Housing: Apartment Alcohol intake: never Patient Tobacco Use Status: Current everyday Tobacco user Tobacco use type: Cigarette Cigarettes Per Day: 4 e-Cigarette/Vaping Use: Never Used Second Hand Smoke Exposure: Yes Do you have a plan to hurt others: No Plan service: No Current occupational status: employed Current occupation: [employer] Sexual orientation: Straight/Heterosexual Gender identity: Female Cognitive needs: No Hearing needs: No Vision needs: Yes Physical Exam Vital Signs: Vital Signs: Last Vital Signs Temp 98.7 F 12/10/24 12:48 Pulse 86 12/10/24 12:48 Resp 20 12/10/24 12:48 BP 100/49 L 12/10/24 12:48 Pulse Ox 99 12/10/24 12:48 O2 Del Method Room Air 12/10/24 12:48 BMI result Body Mass Index 24.9 Const: General: cooperative, healthy appearing and no acute distress Orientation/consciousness: patient oriented x3 Limitations: no limitations HEENT: Head: Yes normal to inspection and Yes atraumatic Ears: hearing grossly normal bilaterally General nose exam: Normal external nose present Face and sinus: Yes normal facial exam Eyes: General: appearance normal, both eyes and all related structures EOM: EOMs intact bilaterally Neck: Neck: Yes normal visual inspection and Yes no meningeal signs Resp: Effort & Inspection: normal respiratory effort and no respiratory distress Auscultation: clear to auscultation bilaterally, no crackles and no wheezes Cardio: Rate: regular rate Heart sounds: S1 normal heart sound present and S2 normal heart sound present Skin: Rashes: no rashes Wounds: no wounds Neuro: General: patient oriented x3, tone normal and no meningeal signs Cranial nerves: Yes CN's II-XII intact bilaterally Gait exam (Neuro): Normal gait present Extrem: General: Yes normal to inspection Course Course Course Narrative: COVID-19 positive Results discussed with patient including worrisome signs and symptoms and strict return precautions, and when to return to the emergency department. They verbalized understanding and feel safe for discharge at this time. Medical Decision Making Medical Decision Making [facility] Narrative: 34-year-old female with a past medical history of asthma, gastritis, depression, presenting to the ED complaining of COVID-19 positive x today on home test. On exam vital signs stable, NAD, nontoxic appearing, talking in complete sentences, no respiratory distress. Concern for viral illness including COVID-19. Low suspicion for pneumonia, ACS, PE, dissection Plan: Viral testing Please refer to course for remaining clinical decision making, interpretation of labs/imaging results, and discussions with consultants and/or family members. Differential Diagnosis Differential Diagnoses: The differential diagnosis associated with the presentation includes As above Lab Data [facility] Lab Attestation statement: I reviewed the patient's lab results. Labs: Lab Results 12/10/24 Range/Units 09:07 Influenza Type A (PCR) NEGATIVE (Negative) Influenza Type B (PCR) NEGATIVE (Negative) RSV RNA Qual (PCR) NEGATIVE (Negative) SARS-CoV-2 RNA (RT-PCR) POSITIVE A (Negative) External Record Review External record reviewed: Inpatient record, Office record, Outpatient record, Prior outpatient labs, Prior outpatient radiology, Primary care record and Outside ED record Tests considered The following testing was considered but not selected: As above Prescription Management I considered prescription management with: Pain Medication, Antiviral and Antibiotic Chronic Conditions Patient?s care impacted by: Other Discharge Plan Discharge Clinical Impression: COVID-19 Patient Disposition: Home, Self-Care Instructions: COVID-19 (Coronavirus Disease 2019) (ED) Additional Instructions: YOU HAVE COVID-19 At this time you will be okay for discharge. Please self isolate for 5 days. Do not expose yourself to others. You may not go to work or school. Please continue to follow cold instructions and wash your hands frequently. You may take Tylenol / Motrin as directed on the bottle for pain or fever. If you have constant or persistent shortness of breath, fever unresolved with medications, chest pain, or your unable to eat or drink please return to the ED CDC Guidelines for home isolation: - Stay away from others - WEAR A MASK if you are sick AND STAY HOME - Cover your mouth and nose with a tissue when you cough or sneeze. Dispose of tissues in a lined trash can and wash your hands immediately with soap and water for at least 20 seconds. If soap and water are not available, clean hands with alcohol-based hand business continuity management director that contains at least 60% alcohol. - Clean your hands often with soap and water for at least 20 seconds - Avoid touching your eyes, nose and mouth with unwashed hands - Do not share dishes, drinking glasses, cups, eating utensils, towels, or bedding with other people in your home. After using these items, wash them thoroughly with soap and water or put in the pipefitter welder. - Clean high-touch surfaces in your isolation area ( sick room and bathroom) every day; let a caregiver clean and disinfect high-touch surfaces in other areas of the home. Clean the area or item with soap and water or another detergent if it is dirty. Then, use a household disinfectant. - Limit contact with pets and animals: If you must care for a pet, wash your hands before and after interacting with them) Prescriptions: No Action albuterol sulfate [ProAir HFA] 90 mcg/actuation HFA aerosol inhaler 2 puff inhalation Q4-6H PRN (Reason: shortness of breath or wheezing) Qty: 8.5 0RF ibuprofen 600 mg tablet 600 mg PO Q6H PRN (Reason: fever or pain) Qty: 30 0RF fluticasone furoate 27.5 mcg/actuation spray,suspension 2 spray intranasal DAILY Qty: 5.9 0RF Rx Instructions: into each nostril fexofenadine [Allergy Relief (fexofenadine)] 180 mg tablet 180 mg PO DAILY Qty: 30 3RF Humira(CF) Pen 80 mg/0.8 mL pen injector kit 80 mg subcut Q2W Referrals: Spenser Mathew MD [Primary Care Provider] - Stand Alone Forms: Work/School Release Print Language: Setswana
[2024-12-10 12:54] VITALS: BP 100/49; PULSE 86; RESP 20; TEMP 37.1; O2SAT 99
== END 2024-12-10 12:58 | disposition home or self-care (01) ==
LOC: HO.ED 12:56
PROVIDERS: Emergency Provider Emergency Medicine; PCP Internal Medicine
DX: U07.1 COVID-19 (principal); M79.10 Myalgia, unspecified site; R50.9 Fever, unspecified; F17.210 Nicotine dependence, cigarettes, uncomplicated
CPT/HCPCS: 0241U; 99282; 99283

== ENCOUNTER 2025-01-31 08:03 | Outpatient (REF) | payer OTHER, SELFPAY ==
[2025-01-31 08:21] LABS: MANUAL DIFF FLAG NO
[2025-01-31 08:41] LABS: Basophils Percent Auto 0.5 % (0-2); Eosinophils Absolute Auto 0.2 X10*3/uL (0.0-0.4); Eosinophils Percent Auto 2.6 % (0-4); Hematocrit 41.6 % (37.0-47.0); Hemoglobin 14.4 g/dl (12.0-16.0); Imm Gran Abs Auto 0.02 X10*3/uL (0.00-0.03); Imm Gran Pct Auto 0.3 % (0.0-0.4); Lymphocytes Absolute Auto 2.7 X10*3/uL (1.2-4.9); Lymphocytes Percent Auto 43.7 % (20-40); Mean Corpuscular HGB Conc 34.6 g/dl (31.0-35.0); Mean Corpuscular Volume 89.5 fL (80.0-98.0); Mean Platelet Volume 9.6 fL (9.4-12.3); Monocytes Absolute Auto 0.7 X10*3/uL (0.1-1.2); Monocytes Percent Auto 11.6 % (2-11); Neutrophils Absolute Auto 2.5 x10*3/uL (2.0-8.3); Neutrophils Percent Auto 41.3 % (45-73); Platelet Count 269 X10*3/uL (160-400); Red Blood Count 4.65 X10*6/uL (4.20-5.50); Red Cell Distribution Width 11.5 % (11.0-16.0); White Blood Count 6.1 X10*3/uL (4.8-10.8)
[2025-01-31 08:52] LABS: Appearance Urine Clear; Color Urine Yellow; Glucose Urine UA Negative (Negative); Leukocyte Esterase Urine Trace (Negative); Nitrite Urine Negative (Negative); PH 7.5 (5.0-9.0); Specific Gravity - Urine >= 1.030 (1.005-1.025); UMIC TRIGGER UACC YES; Urine Blood Negative (Negative); Urine Ketones Trace mg/dL (Negative); Urine Protein Trace mg/dL (Neg-Trace)
[2025-01-31 09:09] LABS: Bacteria Urine Trace (None Seen); Hyaline Casts Urine 0-2 /LPF (0-2); RBC Urine 0-2 /HPF (0-2); WBC Urine 0-5 /HPF (0-5)
[2025-01-31 09:57] LABS: Alanine Aminotransferase 17 U/L (0-31); Alkaline Phosphatase 68 U/L (39-117); Anion Gap 9 (12-20); Aspartate Amino Transferase 22 U/L (5-31); Bilirubin Total 0.7 mg/dL (0.0-1.0); Blood Urea Nitrogen 12 mg/dL (9-16); Calcium 8.9 mg/dL (8.4-10.2); Carbon Dioxide 22 mmol/L (22-29); Chloride 110 mmol/L (96-108); Cholesterol 124 mg/dL (<200); Estimated Glomerular Filt Rate > 60; Glucose Fasting 95 mg/dL (60-99); HDL Cholesterol 40 mg/dL (>40); LDL Cholesterol Calculated 73 mg/dL (<100); Potassium 3.6 mmol/L (3.3-5.1); Sodium 137 mmol/L (135-145); Triglycerides 56 mg/dL (<150)
[2025-01-31 09:58] LABS: TSH reflex Free T4 1.46 uIU/mL (0.32-4.0); Vitamin D 25-OH Total 14.5 ng/mL (>30)
[2025-01-31 10:06] LABS: Vitamin B12 370 pg/mL (200-900)
== END 2025-01-31 08:04 | disposition home or self-care (01) ==
LOC: HO.LAB 08:03
PROVIDERS: PCP Internal Medicine; Visit Provider Internal Medicine
DX: Z00.00 Encounter for general adult medical examination without abnormal findings (principal)
CPT/HCPCS: 36415; 80053; 80061; 81001; 82306; 82607; 82746; 84443; 85025

== ENCOUNTER 2025-04-21 11:42 | Outpatient (AMB) | payer OTHER, SELFPAY ==
[2025-04-21 11:45] VITALS: BP 96/50; PULSE 92; TEMP 37.4; O2SAT 97; BMI 27.2
--- NOTE | 2025-04-21 11:45 | AM.OFFWIN_ITS ---
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 - The nasal symptoms began approximately one month ago, characterized by crusting and yellow discharge. - The patient reports that the symptoms resolve temporarily but recur after a few days. - The rash can be at each nare. - She has lesions on her face that she s tates are different from this crusting. - The patient uses a nasal spray, which may be contributing to the irritation. - The patient also reports lymphadenopat hy, which is tender to touch and possibly related to the nasal condition. - She denies new foods, lotions, soaps, creams, makeup, medications, pets or travel. Physical Exam General: Cooperative, healthy appearing, comfortable, no acute distress and well developed Orientation: Patient oriented x3 Mouth: normal, moist oral mucosa Neck: Normal visual inspection and full ROM. Large, tender, submental node noted. Respiratory: Normal respiratory effort and able to speak in complete sentences. Clear to auscultation bilaterally. No w/r/r noted. Cardiovascular: RRR, no m/r/g noted. Normal S1 and S2 Skin: Crusting, dry, flaking skin noted at the left nare. No lesion noted. Multiple macular erythematous open lesions noted on the face. Patient was informed and verbally consented to the use of an ambient scribe for clinic note documentation during this visit [facility] Medical History Allergic rhinitis Hidradenitis suppurativa Overweight (BMI 25.0-29.9) Vitamin B12 deficiency Vitamin D deficiency Depression COVID-19 Atopic dermatitis Gastritis Asthma Surgical History History of removal of cyst History of tubal ligation Family History Father Asthma Mother Asthma Son Developmental delay, severe ADD (attention deficit disorder) Maternal Grandmother Diabetes Maternal Grandfather No problems noted. Other Mental health problem Social History Household Members: Spouse and Children Housing: Apartment Alcohol intake: never Patient Tobacco Use Status: Current everyday Tobacco user Tobacco use type: Cigarette Cigarettes Per Day: 4 e-Cigarette/Vaping Use: Never Used Second Hand Smoke Exposure: Yes service: No Current occupational status: employed Current occupation: [employer] Sexual orientation: Straight/Heterosexual Gender identity: Female Cognitive needs: No Hearing needs: No Vision needs: Yes Female Reproductive History Menstrual Age of Menarche: 13 Review of Systems Const All systems reviewed & are unremarkable except as noted in HPI and below Physical Exam Vital Signs: Last Vital Signs Temp 99.3 F 04/21/25 11:45 Pulse 92 04/21/25 11:45 BP 96/50 L 04/21/25 11:45 Pulse Ox 97 04/21/25 11:45 Oxygen Delivery Method Room Air 04/21/25 11:45 BMI result Body Mass Index 27.2 Assessment & Plan Assessment & Plan (1) Rash: Code(s): R21 - Rash and other nonspecific skin eruption Plan Most likely staph vs impetigo Plan - Prescribed an antibiotic ointment to be applied to the affected area twice daily for 10 days. - Advised to apply the ointment to both sides of the nose. - Antibiotics prescribed to address the underlying infection. - Tylenol or Motrin as needed for pain Medications: New mupirocin 2% 1 appl topical TID 22 grams 0RF cephalexin 500 mg PO Q6H 28 caps 0RF Coding Level of Care Code Est Pt Level 3 (13076) Diagnoses Rash R21
== END 2025-04-21 12:42 | disposition home or self-care (01) ==
PROVIDERS: PCP Internal Medicine; Visit Provider Physician Assistant Medical
DX: R21 Rash and other nonspecific skin eruption (principal)

== ENCOUNTER → 2025-04-21 11:42 | Outpatient (BNVA) | payer OTHER, SELFPAY | PROVIDERS: PCP Internal Medicine; Visit Provider Physician Assistant Medical | DX: R21 Rash and other nonspecific skin eruption (principal) | CPT/HCPCS: 99212 ==

== ENCOUNTER 2025-04-29 09:37 | Outpatient (REF) | payer OTHER, SELFPAY ==
[2025-04-29 21:04] LABS: Bacterial Vaginosis PCR NEGATIVE (Negative); Candida Group PCR NOT DETECTED (Not Detect); Candida glab krusei PCR NOT DETECTED (Not Detect); Trichomonas vaginalis PCR NOT DETECTED (Not Detect)
[2025-04-29 22:20] LABS: CT PCR NOT DETECTED (Not Detect.); NG PCR NOT DETECTED (Not Detect.)
== END 2025-04-29 09:38 | disposition home or self-care (01) ==
LOC: HO.LNP 09:37
PROVIDERS: PCP Internal Medicine; Visit Provider Obstetrics & Gynecology
DX: Z01.419 Encounter for gynecological examination (general) (routine) without abnormal findings (principal); Z11.3 Encounter for screening for infections with a predominantly sexual mode of transmission; Z20.2 Contact with and (suspected) exposure to infections with a predominantly sexual mode of transmission
CPT/HCPCS: 81515; 87491; 87591; 99395

== ENCOUNTER 2025-04-29 09:37 | Outpatient (AMB) | payer OTHER, SELFPAY ==
[2025-04-29 09:52] VITALS: BP 112/70; BMI 26.8
--- NOTE | 2025-04-29 09:52 | MHC.OFFVIS ---
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 No complaints. Requesting STD screening Last Pap/HPV was negative in 06/19 [facility] Medical History Allergic rhinitis Hidradenitis suppurativa Overweight (BMI 25.0-29.9) Vitamin B12 deficiency Vitamin D deficiency Depression COVID-19 Atopic dermatitis Gastritis Asthma Surgical History History of removal of cyst History of tubal ligation Family History Father Asthma Mother Asthma Son Developmental delay, severe ADD (attention deficit disorder) Maternal Grandmother Diabetes Maternal Grandfather No problems noted. Other Mental health problem Social History Household Members: Spouse and Children Housing: Apartment Alcohol intake: never Patient Tobacco Use Status: Current everyday Tobacco user Tobacco use type: Cigarette Cigarettes Per Day: 4 e-Cigarette/Vaping Use: Never Used Second Hand Smoke Exposure: Yes service: No Current occupational status: employed Current occupation: [employer] Sexual orientation: Straight/Heterosexual Gender identity: Female Cognitive needs: No Hearing needs: No Vision needs: Yes Female Reproductive History Menstrual Age of Menarche: 13 Date of last menstrual period: 04/23/25 control method: permanent sterilization Date of last pap smear: 06/27/22 Review of Systems Const All systems reviewed & are unremarkable except as noted in HPI and below Card Reports as per HPI Resp Reports as per HPI GI Reports as per HPI and Reports no additional complaints Reports as per HPI Physical Exam Vital Signs: Last Vital Signs BP 112/70 04/29/25 09:52 BMI result Body Mass Index 26.8 Const General: cooperative, healthy appearing and comfortable Chest Chest palpation & inspection: normal inspection of the chest and normal palpation of entire chest wall Breast/axilla inspection: normal inspection of the breasts and normal inspection of the axillae Breast/axilla palpation: normal palpation of the breasts, normal palpation of the axillae and no axillary lymphadenopathy Resp Effort & Inspection: normal respiratory effort Auscultation: clear to auscultation bilaterally Percussion: percussion normal Cardio Palpation: normal PMI Rate: regular rate Rhythm: regular rhythm Heart sounds: no murmurs and no rubs Peripheral pulses: Peripheral pulses 2+ throughout GI Inspection: Yes normal to inspection Palpation (GI): Soft to palpation, nontender, no guarding, not rigid and No hepatosplenomegaly present Percussion: Yes normal to percussion Auscultation: normal bowel sounds Rectal Exam - Female: deferred General: Yes bladder normal to palpation External Female Exam: No lesion Speculum Exam - Vagina: normal appearance of the vagina, normal palpation, normal vaginal discharge and not erythematous Speculum Exam - Cervix: normal appearance of the cervix and normal palpation Bimanual exam- vagina & uterus: normal bimanual exam, normal palpation, uterine size normal, bladder normal to palpation, consistency normal and normal palpation Bimanual Exam- Adnexa, other: normal adnexae, no masses and no tenderness Assessment & Plan Assessment & Plan (1) Well woman exam: Code(s): Z01.419 - Encounter for gynecological examination (general) (routine) without abnormal findings Category: Medical Plan: Cotesting not indicated this year. Counseled the patient about the recommended dietary allowance of 1000 mg of Calcium & 600 IU of vitamin D. The patient was instructed to perform monthly self-breast exams and to schedule an annual exam in a year; All questions answered and the patient verbalized understanding. Instructed the patient to schedule annual exam in a year (2) Screen for STD (sexually transmitted disease): Code(s): Z11.3 - Encounter for screening for infections with a predominantly sexual mode of transmission Category: Medical Plan: STD screening tests done includes: BV panel for trichomonas, GC/CT will send patient for serology std screening for HIV, RPR, Hep b s Ag, HepC Ab. Instructions given the patient to schedule a follow-up appointment for repeat serology screen in 6 months for possible false negatives. Orders: Orders Hepatitis B Surface Antigen Today Z20.2 - Contact with and (suspected) exposure to infections with a predominantly sexual mode of transmission HIV Ab/Ag Today Z20.2 - Contact with and (suspected) exposure to infections with a predominantly sexual mode of transmission Hepatitis C Antibody Today Z20.2 - Contact with and (suspected) exposure to infections with a predominantly sexual mode of transmission Syphilis Screen Today Z20.2 - Contact with and (suspected) exposure to infections with a predominantly sexual mode of transmission Coding Level of Care Code Est Pt Prev Care 18-39y(24598) Diagnoses Well woman exam Z01.419 Screen for STD (sexually transmitted disease) Z11.3
== END 2025-04-29 10:12 | disposition home or self-care (01) ==
LOC: HO.HWS 09:38
PROVIDERS: PCP Internal Medicine; Visit Provider Obstetrics & Gynecology
DX: Z01.419 Encounter for gynecological examination (general) (routine) without abnormal findings (principal); Z11.3 Encounter for screening for infections with a predominantly sexual mode of transmission
CPT/HCPCS: 99395; 99459

== ENCOUNTER 2025-05-20 09:15 | Outpatient (REF) | payer OTHER, SELFPAY ==
[2025-05-20 09:56] LABS: MANUAL DIFF FLAG NO
[2025-05-20 11:34] LABS: Hematocrit 40.2 % (37.0-47.0); Hemoglobin 13.8 g/dl (12.0-16.0); Imm Gran Abs Auto 0.02 X10*3/uL (0.00-0.03); Imm Gran Pct Auto 0.3 % (0.0-0.4); Lymphocytes Absolute Auto 2.1 X10*3/uL (1.2-4.9); Mean Corpuscular HGB Conc 34.3 g/dl (31.0-35.0); Mean Corpuscular Hemoglobin 31.2 pg (27.0-33.0); Mean Corpuscular Volume 90.7 fL (80.0-98.0); NRBC Abs Auto 0.000 X10*3/uL (0.0-0.012); NRBC Pct Auto 0.0 /100WBC (0.0-0.2); Platelet Count 272 X10*3/uL (160-400); Red Blood Count 4.43 X10*6/uL (4.20-5.50); White Blood Count 7.3 X10*3/uL (4.8-10.8)
[2025-05-20 12:05] LABS: Alanine Aminotransferase 24 U/L (0-31); Albumin Level 4.0 g/dL (3.5-5.0); Alkaline Phosphatase 69 U/L (39-117); Anion Gap 9 (12-20); Aspartate Amino Transferase 25 U/L (5-31); Blood Urea Nitrogen 9 mg/dL (9-16); Calcium 8.8 mg/dL (8.4-10.2); Carbon Dioxide 25 mmol/L (22-29); Chloride 108 mmol/L (96-108); Estimated Glomerular Filt Rate > 60; Potassium 3.5 mmol/L (3.3-5.1); Sodium 138 mmol/L (135-145); Total Protein 6.8 g/dL (6.5-8.0)
[2025-05-20 12:20] LABS: HBsAGNum1 0.30 S/CO (0.00-0.99); HIV Num 1 0.06 S/CO (0.00-0.99); Hepatitis B Surface Antigen Negative (Negative); ~HepC Num1 0.14 S/CO (0.00-0.79); ~Hepatitis C Antibody Nonreactive (Nonreactive)
[2025-05-20 12:22] LABS: Syphilis Screen Nonreactive (Nonreactive)
[2025-05-23 15:38] LABS: Quantiferon TB Gold Plus 1 NEGATIVE (NEGATIVE); TB Test (QFT) Mitogen -Nil >10.00 IU/mL; TB Test (QFT) Nil 0.02 IU/mL; TB Test (QFT) Plus TB1 -Nil 0.02 IU/mL; TB Test (QFT) Plus TB2 -Nil 0.02 IU/mL
== END 2025-05-20 09:16 | disposition home or self-care (01) ==
LOC: HO.LAB 09:15
PROVIDERS: Absent Provider Dermatology; PCP Internal Medicine; Visit Provider Obstetrics & Gynecology
DX: Z20.2 Contact with and (suspected) exposure to infections with a predominantly sexual mode of transmission (principal)
CPT/HCPCS: 36415; 80053; 85025; 86480; 86780; 86803; 87340; 87389

== ENCOUNTER 2025-06-22 17:00 | Outpatient (AMB) | payer OTHER, SELFPAY ==
[2025-06-22 17:13] VITALS: BP 110/76; PULSE 82; O2SAT 98; BMI 27.3
--- NOTE | 2025-06-22 17:13 | MHC.PC.OV ---
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 Accompanied by: Self / Same As Patient Allergies No Known Allergies Allergy (Verified 06/22/25 17:59) Medication List - Last Reconciled 06/22/25 by Spenser Mathew MD adalimumab (Humira(CF) Pen) 80 mg subcut Q2W albuterol sulfate 90 mcg/actuation (ProAir HFA) 2 puffs inhalation Q4-6H PRN fluticasone furoate 27.5 mcg/actuation 2 sprays intranasal DAILY ibuprofen 600 mg PO Q6H PRN mupirocin 2% 1 appl topical TID Tobacco use date assessed: 06/22/25 Dental Screening Dental Screen Date: 06/22/25 Did you have a dental visit in the last 12 months?: Yes Did you have a dental problem in the last 6 months where you did not have access to dental care?: No Was dental information given to patient?: Patient has dentist HPI hidalfenitis HPI Details Patient comes in today for her follow-up visit States that she has been experiencing increased pain over her shoulder for the past 3 months Reports that she does a lot a heavy lifting at work thinks that she may have strained her shoulder a while back because of what she does at work on a daily basis Adds that she experiences recurrent nonproductive cough and mild shortness of breath, especially at night States that she found out that she has a lot of allergies from recent allergy testing - she is allergic to cats, dogs, feathers as well as wigs, among others States that her allergy nasal spray and inhalers help with her symptoms and she uses them as needed She denies any fever, headaches or dizziness Denies any exertional chest pains No nausea/vomiting, no abdominal pain No change in bowel habits noted States that she still breaks out repeatedly in painful boils and sores, especially in her axillary areas, but states that this has been better controlled lately Needs a couple of her Rx refilled She had her follow-up labs done last month - to discuss her results [facility] Medical History Allergic rhinitis Hidradenitis suppurativa Overweight (BMI 25.0-29.9) Vitamin B12 deficiency Vitamin D deficiency Depression COVID-19 Atopic dermatitis Gastritis Asthma Surgical History History of removal of cyst History of tubal ligation Family History Father Asthma Mother Asthma Son Developmental delay, severe ADD (attention deficit disorder) Maternal Grandmother Diabetes Maternal Grandfather No problems noted. Other Mental health problem Social History Household Members: Spouse and Children Housing: Apartment Alcohol intake: never Patient Tobacco Use Status: Current everyday Tobacco user Tobacco use type: Cigarette Cigarettes Per Day: 4 e-Cigarette/Vaping Use: Never Used Second Hand Smoke Exposure: Yes service: No Current occupational status: employed Current occupation: [employer] Sexual orientation: Straight/Heterosexual Gender identity: Female Cognitive needs: No Hearing needs: No Vision needs: Yes Female Reproductive History Menstrual Age of Menarche: 13 Questionnaire PHQ-9 Over the last 2 weeks, how often have you been bothered by any of the following problems? 1. Little interest or pleasure in doing things: not at all 2. Feeling down, depressed, or hopeless: not at all 3. Trouble falling or staying asleep, or sleeping too much: not at all 4. Feeling tired or having little energy: not at all 5. Poor appetite or overeating: not at all 6. Feeling bad about yourself - or that you are a failure or have let yourself or your family down: not at all 7. Trouble concentrating on things, such as reading the newspaper or watching television: not at all 8. Moving or speaking so slowly that other people could have noticed. Or the opposite - being so fidgety or restless that you have been moving around a lot more than usual: not at all 9. Thoughts that you would be better off or of hurting yourself in some way: not at all Total score: 0 Depression Screening Interpretation: Negative Depression Screening Done: Yes 14359 - PHQ-9 Billing: Yes Source: Developed by Drs. Gm Smith, Lu Diaz, Leonides Montero and colleagues, with an educational esha from [employer] Thrive Questionnaire Date Thrive assessed: 06/22/25 I am a: Patient What is your living situation today?: I have a steady place to live Within the past 12 months, did the food you bought not last and you didn't have the money to get more?: Often true Within the past 12 months, did you worry whether your food would run out before you got money to buy more?: Often true Do you have trouble paying for medicines?: No Do you have trouble getting transportation to medical appointments?: No Do you have trouble paying your heating and electricity bill?: No Do you have trouble taking care of your child, family member or friend?: No Do you have trouble with day-to-day activities such as bathing, preparing meals, shopping, managing finances, etc.?: No Are you currently unemployed and looking for a job?: No Are you interested in more education?: No Please select the resources that you would like help with: None Currently or been in a relationship where the following occur: No concerns reported THRIVE Score: 2 AUDIT C Alcohol Use Questionnaire (AUDIT-C) 1. How often do you have a drink containing alcohol?: Never 3. How often do you have six or more drinks on one occasion?: Never Total Score: 0 Score Reviewed/Action Taken: Yes ASIA-7 AMB Questionnaire ASIA-7 Date ASIA - 7 assessed: 06/22/25 Feeling nervous, anxious, or on edge: 0 = Not at all Not being able to stop or control worryin = Not at all Worrying too much about different things: 0 = Not at all Trouble relaxin = Not at all Being so restless that it is hard to sit still: 0 = Not at all Becoming easily annoyed or irritable: 0 = Not at all Feeling afraid as if something awful might happen: 0 = Not at all Total ASIA-7 score (0-4 normal; 5-9 mild; 10-14 moderate; 15-21 severe): 0 Source: Developed by Lu Daugherty, Leonides Montero and colleagues, with an educational esha from [employer] Review of Systems Const Denies chills, Denies fatigue, Denies fever(s) and Denies headache(s) ENT Denies dysphagia, Denies dizziness, Denies otalgia, Denies headache(s), Denies neck pain, Denies odynophagia and Denies sore throat Card Denies chest pain, Denies rapid heart rate, Denies palpitations and Reports dyspnea (mild, especially at night) Resp Denies chest congestion, Reports cough (on and off, non-productive, especially at night), Reports dyspnea (mild, especially at night) and Denies wheezing GI Denies abdominal pain, Denies constipation, Denies dysphagia, Denies heartburn, Denies diarrhea, Denies nausea, Denies odynophagia and Denies vomiting Denies difficulty voiding, Denies nocturia, Denies dysuria and Denies urinary urgency Musc Denies back pain, Reports arthralgias (in the right shoulder lately) and Denies neck pain Skin/Breast Details: (+) scattered multiple scars from previous recurrent boils/abscesses Denies rash Neuro Denies dizziness, Denies headache(s) and Denies paresthesias Psych Denies anxiety and Denies depression Endo Denies fatigue and Denies palpitations Harvey/Lymph Denies easy bruising Aller/Immun Denies wheezing Physical exam (Primary Care) Vital Signs: Last Vital Signs Pulse 82 06/22/25 17:13 BP 110/76 06/22/25 17:13 Pulse Ox 98 06/22/25 17:13 Oxygen Delivery Method Room Air 06/22/25 17:13 BMI result Body Mass Index 27.3 Tobacco/Smoking Status: Tobacco use Status Tobacco use date assessed 06/22/25 06/22/25 17:20 Patient Tobacco Use Status Current everyday Tobacco 06/22/25 17:20 Tobacco use type Cigarette 06/22/25 17:20 e-Cigarette/Vaping Use Never Used 06/22/25 17:20 PHQ-9: PHQ-9 Score PHQ-9: Total score 0 06/22/25 18:00 Depression Screening Interpretation: Negative Thrive Assessment: Date of Thrive Assessment Date Thrive assessed 06/22/25 06/22/25 17:20 Currently or been in a relationship where the following occur: No concerns reported Const General: no acute distress and alert HENMT Ears: TM's normal bilaterally and EAC's normal Throat: Yes posterior oropharynx normal and Yes tonsils normal (no TP congestion) Neck Neck: Yes no lymphadenopathy and Yes supple Thyroid: Thyroid normal Resp Auscultation: clear to auscultation bilaterally, no rales and no wheezes Cardio Rate: regular rate Rhythm: regular rhythm Heart sounds: no murmurs GI Palpation (GI): Soft to palpation and nontender Auscultation: normal bowel sounds General: Yes no CVA tenderness Back/Spine/Pelvis Back: no CVA tenderness Thoracic/Lumbar Spine: No lumbar spinal tenderness Skin Other: (+) multiple scattered scars, especially near the axillary areas, from previous recurrent boils/abscesses Rashes: no rashes Extrem General: Yes no clubbing, cyanosis or edema Right upper extremity: shoulder/upper arm Details: tenderness Location: of the A-C joint; no swelling Results Reviewed Results Reviewed: Laboratory Tests 01/31/25 01/31/25 05/20/25 08:18 08:19 09:53 WBC 7.3 Hgb 13.8 Hct 40.2 Plt Count 272 Sodium 138 Potassium 3.5 Creatinine 0.54 Estimated GFR > 60 Random Glucose 97 Fasting Glucose 95 Calcium 8.8 AST 25 ALT 24 Albumin 4.0 Triglycerides 56 Cholesterol 124 LDL Cholesterol, Calc 73 HDL Cholesterol 40 L Vitamin B12 370 25-OH Vitamin D Total 14.5 L TSH 1.46 Ur Specific Aline >= 1.030 H Urine Protein Trace Urine Glucose (UA) Negative Urine Blood Negative Urine Nitrite Negative Ur Leukocyte Esterase Trace H Coding Level of Care Code Est Pt Level 4 (82897) Diagnoses Hidradenitis suppurativa L73.2 Mild intermittent asthma without complication J45.20 Asthma complication type: uncomplicated Asthma persistence: intermittent Asthma severity: mild Allergic rhinitis, unspecified seasonality, unspecified trigger J30.9 Allergic rhinitis seasonality: unspecified Allergic rhinitis trigger: unspecified Acute pain of right shoulder M25.511 Chronicity: acute Vitamin D deficiency E55.9 Vitamin B12 deficiency E53.8 Episode of recurrent major depressive disorder, unspecified depression episode severity F33.9 Active/Remission status: currently active Depression Type: major depressive disorder Major depression episode severity: unspecified Major depression recurrence: recurrent Overweight (BMI 25.0-29.9) E66.3 Additional Codes PHQ-9 - 29364 - PHQ-9 Billing: Yes ([id number]) Assessment & Plan Assessment & Plan (1) Hidradenitis suppurativa: Code(s): L73.2 - Hidradenitis suppurativa Category: Medical Plan: Continue Humira 80 mg SQ every 2 weeks - patient states that this has resulted in a significant reduction in her recurrent bouts of hidradenitis over the past few months Follow up with dermatology (Dr. Roman) as scheduled (2) Asthma: Code(s): J45.909 - Unspecified asthma, uncomplicated Category: Medical Qualifiers: Asthma complication type: uncomplicated Asthma persistence: intermittent Asthma severity: mild Qualified Code(s): J45.20 - Mild intermittent asthma, uncomplicated Plan: Controlled Continue Albuterol HFA 1 to 2 inhalations every 6 hours PRN (3) Allergic rhinitis: Code(s): J30.9 - Allergic rhinitis, unspecified Category: Medical Qualifiers: Allergic rhinitis seasonality: unspecified Allergic rhinitis trigger: unspecified Qualified Code(s): J30.9 - Allergic rhinitis, unspecified Plan: Patient states that she has taken multiple allergy meds in the past with little to no relief, including Xyzal She is currently on Budesonide nasal spray QD PRN She's had allergy testing done recently, with (+) multiple allergies on her test results (4) Right shoulder pain: Code(s): M25.511 - Pain in right shoulder Category: Medical Qualifiers: Chronicity: acute Qualified Code(s): M25.511 - Pain in right shoulder Plan: She is advised that this is likely due to rotator cuff strain or bursitis/tendinitis We will send patient for x-rays of the right shoulder for further evaluation Discussed consideration for referral to Physical therapy or Orthopedics, depending on how her x-rays come out (5) Vitamin D deficiency: Code(s): E55.9 - Vitamin D deficiency, unspecified Category: Medical Plan: Patient has not been taking her Vitamin D supplements in a while now She is advised that her Vitamin D level is very low on her recent labs Will start her back on Vitamin D3 2000 units QF (6) Vitamin B12 deficiency: Code(s): E53.8 - Deficiency of other specified B group vitamins Category: Medical Plan: She is advised that her Vitamin B12 level is normal on her recent labs (7) Depression: Code(s): F32.A - Depression, unspecified Category: Medical Qualifiers: Active/Remission status: currently active Depression Type: major depressive disorder Major depression episode severity: unspecified Major depression recurrence: recurrent Qualified Code(s): F33.9 - Major depressive disorder, recurrent, unspecified Plan: She was started on a trial of Sertraline 50 mg QD a few years ago in 05/2022 but she is currently no longer on the medication Patient is not clear how long she tried it but admits that she has not been on it for a while now and declines any other Rx at this time, as she states that she no longer feels depressed (8) Overweight (BMI 25.0-29.9): Code(s): E66.3 - Overweight Category: Medical Plan: Reinforced diet/exercise as tolerated/lose weight Plan To return in 6 months for her next annual physical examination Patient is again reminded to get her labs done just before she comes back in a few months for her next appointment Orders: Orders Complete Blood Count Auto Diff 6 Months D64.9 - Anemia, unspecified, Z00.00 - Encounter for general adult medical examination without abnormal findings Comprehensive [place]. Panel Fast 6 Months E78.00 - Pure hypercholesterolemia, unspecified, Z00.00 - Encounter for general adult medical examination without abnormal findings TSH reflex Free T4 6 Months E78.00 - Pure hypercholesterolemia, unspecified, Z00.00 - Encounter for general adult medical examination without abnormal findings UA CC w/rflx Micro + Cult 6 Months R30.0 - Dysuria, Z00.00 - Encounter for general adult medical examination without abnormal findings Vitamin D 25-OH Total 6 Months E55.9 - Vitamin D deficiency, unspecified, Z00.00 - Encounter for general adult medical examination without abnormal findings Vitamin B12 and Folate 6 Months E53.8 - Deficiency of other specified B group vitamins, Z00.00 - Encounter for general adult medical examination without abnormal findings XR shoulder RT min 2V 06/22/ M25.511 - Pain in right shoulder Lipid Panel 6 Months E78.00 - Pure hypercholesterolemia, unspecified, Z00.00 - Encounter for general adult medical examination without abnormal findings Medications: New cholecalciferol (vitamin D3) 50 mcg PO DAILY 90 caps 3RF 90 days E55.9 - Vitamin D deficiency, unspecified budesonide 32 mcg/actuation administer into each nostril 2 sprays intranasal DAILY PRN 8.43 mL 5RF allergic symptoms Changed From albuterol sulfate 90 mcg/actuation 2 puffs inhalation Q4-6H PRN 8.5 grams 0RF shortness of breath or wheezing J45.20 - Mild intermittent asthma, uncomplicated To albuterol sulfate 90 mcg/actuation (Ventolin HFA) 2 puffs inhalation Q4-6H PRN 8.5 grams 5RF shortness of breath or wheezing 30 days J45.20 - Mild intermittent asthma, uncomplicated
== END 2025-06-22 18:10 | disposition home or self-care (01) ==
LOC: HO.HMCH 17:01
PROVIDERS: PCP Internal Medicine; Visit Provider Internal Medicine
DX: L73.2 Hidradenitis suppurativa (principal); J45.20 Mild intermittent asthma, uncomplicated; J30.9 Allergic rhinitis, unspecified; M25.511 Pain in right shoulder; E55.9 Vitamin D deficiency, unspecified; E53.8 Deficiency of other specified B group vitamins; F33.9 Major depressive disorder, recurrent, unspecified; E66.3 Overweight

== ENCOUNTER → 2025-06-22 17:00 | Outpatient (BNVA) | payer OTHER, SELFPAY | PROVIDERS: PCP Internal Medicine; Visit Provider Internal Medicine | DX: J45.20 Mild intermittent asthma, uncomplicated (principal); L73.2 Hidradenitis suppurativa; J30.9 Allergic rhinitis, unspecified; M25.511 Pain in right shoulder; E55.9 Vitamin D deficiency, unspecified; E53.8 Deficiency of other specified B group vitamins; F33.9 Major depressive disorder, recurrent, unspecified; E66.3 Overweight; D64.9 Anemia, unspecified; E78.00 Pure hypercholesterolemia, unspecified; R30.0 Dysuria; Z68.27 Body mass index [BMI] 27.0-27.9, adult | CPT/HCPCS: 96127; 99212 ==

== ENCOUNTER 2025-07-03 07:37 | Outpatient (AMB) | payer OTHER, SELFPAY ==
[2025-07-03 07:55] VITALS: BP 100/64; PULSE 68; RESP 16; TEMP 36.7; O2SAT 98; BMI 27.1
--- NOTE | 2025-07-03 07:55 | AM.OFFWIN_ITS ---
Intake Vital Signs 07/03/25 07:55 Height 5 ft 4 in Weight 158 lb BMI 27.1 BP 100/64 Blood Pressure Location Lt brachial Position Sitting Respiration 16 Pulse 68 Pulse Source Pulse Oximeter Temp 98.0 F Temp Source Oral Pulse Oximetry (%) 98 Oxygen Delivery Method Room Air Intake Visit Reasons: EP pain/feeling cold in pointer finger Intake Note: Pt is here c/o Rt hand index finger is discolored, swollen and feels cold: [id number]: no trauma noted Patient Tobacco Use Status: Current everyday Tobacco user Allergies No Known Allergies Allergy (Verified 07/03/25 07:57) HPI HPI Comments History of Present Illness Details History of Present Illness - The patient is a 35-year-old female pr esenting with swelling and pain in the right index finger. - The issue began approximately three we eks ago with no known trauma or inciting event. - The patient reports significant tender ness and swelling in the right index finger. - The patient denies any history of trau ma, fracture, arthritis, or gout in the affected finger. - Ibuprofen 800 mg was taken without rel ief of symptoms. Physical Exam General: Cooperative, healthy appearing, comfortable, no acute distress and well developed Orientation: Patient oriented x3 Limitations: No limitations Head: Normal to inspection Ears: Hearing grossly normal bilaterally Nose: Normal External nose present Face and sinus: Normal facial exam Eyes: Appearance normal, both eyes and all related structures Neck: Normal visual inspection and Yes full ROM Respiratory: Normal respiratory effort and able to speak in complete sentences. Skin: No rashes or lesions noted Neuro: Patient oriented x3, neurovascularly intact Extremities: Right second digit with scant ecchymosis on tip, TTP PIP to tip of finger, no edema, no nail damage, no skin changes, warm and well perfused, full ROM and NVI. Remainder of hand unremarkable. [facility] Medical History Allergic rhinitis Hidradenitis suppurativa Overweight (BMI 25.0-29.9) Vitamin B12 deficiency Vitamin D deficiency Depression COVID-19 Atopic dermatitis Gastritis Asthma Surgical History History of removal of cyst History of tubal ligation Family History Father Asthma Mother Asthma Son Developmental delay, severe ADD (attention deficit disorder) Maternal Grandmother Diabetes Maternal Grandfather No problems noted. Other Mental health problem Social History Household Members: Spouse and Children Housing: Apartment Alcohol intake: never Patient Tobacco Use Status: Current everyday Tobacco user Tobacco use type: Cigarette Cigarettes Per Day: 4 e-Cigarette/Vaping Use: Never Used Second Hand Smoke Exposure: Yes service: No Current occupational status: employed Current occupation: [employer] Sexual orientation: Straight/Heterosexual Gender identity: Female Cognitive needs: No Hearing needs: No Vision needs: Yes Female Reproductive History Menstrual Age of Menarche: 13 Review of Systems Const All systems reviewed & are unremarkable except as noted in HPI and below Physical Exam Vital Signs: Last Vital Signs Temp 98.0 F 07/03/25 07:55 Pulse 68 07/03/25 07:55 Resp 16 07/03/25 07:55 BP 100/64 07/03/25 07:55 Pulse Ox 98 07/03/25 07:55 Oxygen Delivery Method Room Air 07/03/25 07:55 BMI result Body Mass Index 27.1 Assessment & Plan Assessment & Plan (1) Finger pain, right: Code(s): M79.644 - Pain in right finger(s) Plan: Patient was informed and verbally consented to the use of an ambient scribe for clinic note documentation during this visit. Possible Blood Vessel Rupture In The Right Index Finger - Plan to obtain an x-ray to rule out fracture or other underlying issues. - Patient advised to proceed to the radiology department for imaging. - Follow-up call to be made with results and further management plan. - Consideration of arthritis due to persistent symptoms despite NSAID use. Orders: Orders XR hand RT min 3V Today M79.644 - Pain in right finger(s) Coding Level of Care Code Est Pt Level 4 (72239) Diagnoses Finger pain, right M79.644
== END 2025-07-03 08:40 | disposition home or self-care (01) ==
PROVIDERS: PCP Internal Medicine; Visit Provider Physician Assistant
DX: M79.644 Pain in right finger(s) (principal)

== ENCOUNTER 2025-07-03 07:37 | Outpatient (REF) | payer OTHER, SELFPAY ==
--- NOTE | ~2025-07-03 | XR_ITS ---
EXAMINATION: XR HAND 3 OR MORE VIEWS RIGHT HISTORY: M79.644 - Pain in right finger(s) COMPARISON: Comparison is made with the prior examination dated 09/28/2008. FINDINGS: Three views of the right hand are submitted. Osseous mineralization is normal. There is no fracture or dislocation. The joint spaces are preserved. The soft tissues are unremarkable. XR/XR hand RT min 3V IMPRESSION: Unremarkable examination of the right hand. Electronically signed by: Gm Trivedi MD 07/03/2025 10:08 AM EDT
--- NOTE | ~2025-07-03 | XR_ITS ---
EXAMINATION: XR SHOULDER, RIGHT CLINICAL INFORMATION: M25.511 - Pain in right shoulder COMPARISON: None available. TECHNIQUE: AP external rotation, Grashey, scapular Y, and axillary views of the right shoulder. FINDINGS: Normal bone mineralization. No fracture, dislocation, or suspicious bone lesion. Normal alignment. The glenohumeral joint is normal. The AC joint is normal. There is a type II acromion. No undersurface spurring. The subacromial space is preserved. Remainder of the soft tissue and bony structures appear normal. XR/XR shoulder RT min 2V IMPRESSION: Normal right shoulder. Electronically signed by: Turner Selby MD 07/03/2025 10:29 AM EDT RP
== END 2025-07-03 07:38 | disposition home or self-care (01) ==
LOC: HO.XRAY 07:37
PROVIDERS: Absent Provider Internal Medicine; PCP Internal Medicine; Visit Provider Physician Assistant
DX: M79.644 Pain in right finger(s) (principal); M25.511 Pain in right shoulder
CPT/HCPCS: 73030; 73130; 99212

== ENCOUNTER → 2025-07-03 09:11 | Outpatient (BNV) | payer OTHER, SELFPAY | PROVIDERS: Absent Provider Internal Medicine; PCP Internal Medicine; Visit Provider Radiology Diagnostic Radiology | DX: M25.511 Pain in right shoulder (principal); M79.644 Pain in right finger(s) | CPT/HCPCS: 73030; 73130 ==

== ENCOUNTER 2025-10-06 10:27 | Outpatient (AMB) | payer OTHER, SELFPAY ==
--- NOTE | 2025-10-06 10:43 | MHC.OFFVIS ---
Intake Visit Reasons: missed menses Customs Port Director Required: Yes Customs Port Director Language: [place] Operator Services: Customs Port Director Present (in person) Information Interpreted: non-clinical & clinical Assembler Tubing: Assembler Tubing Present (Jeanette BANEGAS) Accompanied by: Self / Same As Patient Allergies No Known Allergies Allergy (Verified 10/06/25 10:52) HPI Comments Details: Presenting with history of amenorrhea over the last 2 months associated symptoms no nipple discharge or any other concerns. [facility] Medical History Allergic rhinitis Hidradenitis suppurativa Overweight (BMI 25.0-29.9) Vitamin B12 deficiency Vitamin D deficiency Depression COVID-19 Atopic dermatitis Gastritis Asthma Surgical History History of removal of cyst History of tubal ligation Family History Father Asthma Mother Asthma Son Developmental delay, severe ADD (attention deficit disorder) Maternal Grandmother Diabetes Maternal Grandfather No problems noted. Other Mental health problem Social History Household Members: Spouse and Children Housing: Apartment Alcohol intake: never Patient Tobacco Use Status: Current everyday Tobacco user Tobacco use type: Cigarette Cigarettes Per Day: 4 e-Cigarette/Vaping Use: Never Used Second Hand Smoke Exposure: Yes service: No Current occupational status: employed Current occupation: [employer] Sexual orientation: Straight/Heterosexual Gender identity: Female Cognitive needs: No Hearing needs: No Vision needs: Yes Female Reproductive History Menstrual Age of Menarche: 13 Review of Systems Const All systems reviewed & are unremarkable except as noted in HPI and below Physical Exam General: Yes no CVA tenderness External Female Exam: normal external appearance and normal appearance of the urethra Speculum Exam - Vagina: normal appearance of the vagina, normal palpation, no lesions and no masses Speculum Exam - Cervix: normal appearance of the cervix, normal palpation, no lesions, no masses and nontender Bimanual exam- vagina & uterus: normal bimanual exam, normal palpation, uterine size normal, normal palpation, uterine shape normal, No Cervical tenderness present and non-tender Bimanual Exam- Adnexa, other: normal adnexae Back/Spine/Pelvis Back: no CVA tenderness Results AMB Test Urine AMB Test Urine Negative Last Edit by Jeanette Stern CMA on 10/06/25 10:53 Assessment & Plan Assessment & Plan (1) Amenorrhea: Code(s): N91.2 - Amenorrhea, unspecified Category: Medical Plan: UPT done in the office was negative. Discussed with the patient the possible causes of amenorrhea including but not limited to anovulation, thyroid and prolactin disorders, , end organ problems (uterine synechiae), medication side effects and others. Since UPT was negative, this will be followed by a progesterone withdrawal test x 5 days (prescription for Provera 10 mg p.o. q.d. for 5 days sent to the patient's pharmacy), if + bleeding this will be followed by TSH, PRL if negative then the diagnosis is anovulation. if no bleeding occurs will treat with Premarin x 21 days followed by Provera if no bleeding occurs will rule out Premature ovarian failure with FSH/LH. Instructions given the patient to schedule a 2 week follow-up appointment. Orders: Orders AMB HCG Urine Test Today Z32.02 - Encounter for test, result negative Medications: New medroxyprogesterone (Provera) 10 mg PO daily 5 tabs 0RF 5 days Coding Level of Care Code Est Pt Level 3 (89090) Diagnoses Amenorrhea N91.2
== END 2025-10-06 11:19 | disposition home or self-care (01) ==
LOC: HO.HWS 10:28
PROVIDERS: PCP Internal Medicine; Visit Provider Obstetrics & Gynecology
DX: N91.2 Amenorrhea, unspecified (principal); Z32.02 Encounter for pregnancy test, result negative
CPT/HCPCS: 99213

== ENCOUNTER → 2025-10-06 10:27 | Outpatient (BNVA) | payer OTHER, SELFPAY | PROVIDERS: PCP Internal Medicine; Visit Provider Obstetrics & Gynecology | DX: N91.2 Amenorrhea, unspecified (principal); Z98.51 Tubal ligation status; Z32.02 Encounter for pregnancy test, result negative | CPT/HCPCS: 81025; 99212 ==

== ENCOUNTER 2025-10-14 09:10 | Outpatient (REF) | payer OTHER, SELFPAY | END 2025-10-14 09:11 | disposition home or self-care (01) | LOC: HO.LAB 09:10 | PROVIDERS: PCP Internal Medicine; Visit Provider Obstetrics & Gynecology | DX: N91.2 Amenorrhea, unspecified (principal) | CPT/HCPCS: 36415; 84146; 84443 ==

== ENCOUNTER 2025-10-21 08:19 | Outpatient (AMB) | payer OTHER, SELFPAY ==
--- NOTE | 2025-10-21 08:16 | MHC.OFFVIS ---
Intake Visit Reasons: Med F/u Allergies No Known Allergies Allergy (Verified 10/21/25 08:16) HPI Comments Details: The patient scheduled a telehealth visit for follow-up. The patient had an episode of vaginal bleeding afterwards spontaneously without Provera TSH, prolactin normal PFSH Medical History Allergic rhinitis Hidradenitis suppurativa Overweight (BMI 25.0-29.9) Vitamin B12 deficiency Vitamin D deficiency Depression COVID-19 Atopic dermatitis Gastritis Asthma Surgical History History of removal of cyst History of tubal ligation Family History Father Asthma Mother Asthma Son Developmental delay, severe ADD (attention deficit disorder) Maternal Grandmother Diabetes Maternal Grandfather No problems noted. Other Mental health problem Social History Household Members: Spouse and Children Housing: Apartment Alcohol intake: never Patient Tobacco Use Status: Current everyday Tobacco user Tobacco use type: Cigarette Cigarettes Per Day: 4 e-Cigarette/Vaping Use: Never Used Second Hand Smoke Exposure: Yes service: No Current occupational status: employed Current occupation: [employer] Sexual orientation: Straight/Heterosexual Gender identity: Female Cognitive needs: No Hearing needs: No Vision needs: Yes Female Reproductive History Menstrual Age of Menarche: 13 Duration of menses: 3-5 days Date of last menstrual period: 10/09/25 control method: progesterone injection Review of Systems Const All systems reviewed & are unremarkable except as noted in HPI and below Reports as per HPI and Reports no additional complaints GI Reports no additional complaints Reports no additional complaints Telehealth Telehealth Telehealth Platform: [employer] Location of provider rendering services: practice address Location of patient: address on file Patient Identification confirmed using: Name, : Yes Telehealth method: video Patient verbally consented to treatment: Yes Patient verbally consented to billing insurance company: Yes Patient informed of any privacy concerns related to visit: Yes Minutes spent on Phone/Video with Pt.: 4 Assessment & Plan Assessment & Plan (1) Amenorrhea: Comment: Anovulatory Code(s): N91.2 - Amenorrhea, unspecified Category: Medical Plan: Discussed with the patient the results of the TSH and prolactin with a positive withdrawal bleed, the diagnoses an ovulatory amenorrhea. Options of treatment discussed with the patient include cyclic Provera versus control pills. All pros and cons, risks and benefits of each were discussed with the patient. The patient would like to think about it and get back to us. I spent a total of 20 minutes reviewing the chart, talking to the patient via video and documenting in the medical record. Coding Level of Care Code Tele Est Pt Level 3 (73641) Diagnoses Amenorrhea N91.2
== END 2025-10-21 08:47 | disposition home or self-care (01) ==
LOC: HO.HWS 08:19
PROVIDERS: PCP Internal Medicine; Visit Provider Obstetrics & Gynecology
DX: N91.2 Amenorrhea, unspecified (principal)
CPT/HCPCS: 99213